=== PATIENT | male | born 1950 | race Caucasian/White ===

== ENCOUNTER 2020-08-06 08:03 | Inpatient (IN) | payer MEDICARE, OTHER, MEDICAID, SELFPAY ==
[2020-08-06] VITALS (63 sets, daily range): BP systolic 100–138; BP diastolic 52–74; PULSE 62–107; RESP 13–28; TEMP 36.1–36.8; O2SAT 90–98
--- NOTE | ~2020-08-06 | US_ITS ---
EXAMINATION: US venous doppler LE EXAM DATE: 08/06/2020 15:55 INDICATION: Bilateral leg edema. TECHNIQUE: Multiple grayscale, color flow and Doppler images of the lower extremity deep venous syste ms bilaterally were obtained and reviewed. There is no prior study for comparison. FINDINGS: Right side: The right common femoral, femoral and profunda veins demonstrate normal color flow, respi ratory variation, augmentation and compressibility. Compressibility, color flow confirmed within the right popliteal, posterior tibial, peroneal, and greater saphenous veins. Left side: The left common femoral, femoral and profunda veins demonstrate normal color flow, respira tory variation, augmentation and compressibility. Compressibility, color flow confirmed within the l eft popliteal, posterior tibial, peroneal, and greater saphenous veins. IMPRESSION: 1. No lower extremity deep venous thrombosis bilaterally. Reviewed, dictated and finalized at location B.
--- NOTE | ~2020-08-06 | XR_ITS ---
XR chest 2V 08/06/2020 08:35 Indication: Shortness of breath. Lower extremity edema. Procedure: AP and lateral views of the chest Comparison: Comparison to multiple prior studies sequentially, with oldest reviewed study dated 06/2010 Findings: Cardiomegaly. Bibasilar airspace disease. Small left pleural effusion. No acute osseous abn ormality. No pneumothorax.. Impression: 1: Bibasilar airspace disease may represent atelectasis or pneumonia. 2: Cardiomegaly. Reviewed, dictated and finalized at location A. Impression: 1: Bibasilar airspace disease may represent atelectasis or pneumonia. 2: Cardiomegaly.
--- NOTE | ~2020-08-06 | XR_ITS ---
XR chest 2V 08/09/2020 11:41 Indication: Hypoxia Procedure: 2 view chest Comparison: Comparison to multiple prior studies sequentially, with oldest reviewed study dated 06/2010. Findings: Progression of patchy bilateral airspace disease since 08/06/2020, compatible with pneumonia . Heart size upper normal. No significant pleural effusion. No pneumothorax. Impression: 1: Progression of patchy bilateral airspace disease, compatible with pneumonia. Reviewed, dictated and finalized at location B. Impression: 1: Progression of patchy bilateral airspace disease, compatible with pneumonia.
--- NOTE | ~2020-08-06 | XR_ITS ---
EXAMINATION: XR chest 2V DATE: 08/13/2020 07:43 INDICATION: Pneumonia and COPD TECHNIQUE: PA view of the chest is obtained. COMPARISON: 08/09/2020 FINDINGS: Airspace opacities persist in the midlung zones and left lung base without significant falcon ge. There is scarring of the lung apices. There is no pleural effusion or pneumothorax. The cardiomed iastinal silhouette is normal. IMPRESSION: 1. Stable opacities of the left lung base and midlung zones, consistent with atelectasis versus pneum onia. Reviewed, dictated and finalized at location A. IMPRESSION: 1. Stable opacities of the left lung base and midlung zones, consistent with at electasis versus pneumonia.
--- NOTE | ~2020-08-06 | CT_ITS ---
EXAMINATION: CTA chest PE protocol DATE: 08/13/2020 15:27 INDICATION: Hypoxia. Chronic obstructive pulmonary disease. TECHNIQUE: Computed tomography angiography (CTA) of the chest was performed with 100 mL Omnipaque-350 intravenous contrast timed to evaluate the pulmonary arteries. Coronal maximum intensity projection 3D-reconstructions were created by the technologist. Automated exposure control and iterative reconst ruction technique were employed. The dose-length product was 1208.82 mGy-cm. COMPARISON: CT abdomen and pelvis 01/22/2012 FINDINGS: There is mild emphysema. There are patchy groundglass and airspace opacities in all lobes b ilaterally associated with areas of architectural distortion and bandlike atelectasis. No pleural eff usion. The heart size is normal. There is a small pericardial effusion. There are coronary artery amrit cifications. There is no pulmonary embolus. There are bridging endplate osteophytes at multiple level s in the spine, consistent with diffuse idiopathic skeletal hyperostosis (DISH). IMPRESSION: 1. No pulmonary embolus. 2. Diffuse lung disease suspicious for atypical pneumonia such as COVID-19 pneumonia. 3. Mild emphysema. 4. Small pericardial effusion. Reviewed, dictated and finalized at location A. IMPRESSION: 1. No pulmonary embolus. 2. Diffuse lung disease suspicious for atypical pneumonia such as COVID-19 pneu monia. 3. Mild emphysema. 4. Small pericardial effusion.
--- NOTE | 2020-08-06 08:17 | ECG_ITS ---
Measurements Intervals [place] Rate: 73 P: 63 OR: 177 QRS: 16 QRSD: 116 T: 26 QT: 382 QTc: 421 Interpretive Statements SINUS RHYTHM INTRAVENTRICULAR CONDUCTION DELAY BASELINE ARTIFACT- I, II, III, AVR, AVL, AVF BORDERLINE ECG Electronically Signed On 08-06-2020 8:25:35 CDT by Hunter Pagan D.O.
[2020-08-06 08:33] LABS: Basophils Percent Auto 0.2 % (0.2-1.2); Eosinophils Absolute Auto 0.1 K/mm3 (0-0.3); Eosinophils Percent Auto 0.9 % (0-4.4); Hematocrit 39.4 % (42.0-52.0); Hemoglobin 12.1 g/dL (14.0-18.0); Immature Granulocyte Absolute 0.03 K/mm3 (0.00-0.031); Immature Granulocyte Percent A 0.5 % (0-0.5); Immature Platelet Fraction Pct 3.2 % (0.9-11.2); Lymphocytes Absolute Auto 0.96 K/mm3 (0.9-3.2); Lymphocytes Percent Auto 17.5 % (18.3-44.2); Mean Corpuscular HGB Conc 30.7 g/dl (32-36); Mean Corpuscular Hemoglobin 28.5 pg (26-34); Mean Corpuscular Volume 92.7 fl (80-100); Mean Platelet Volume 10.4 fl (7.4-10.4); Monocytes Absolute Auto 0.3 K/mm3 (0.1-0.6); Monocytes Percent Auto 5.3 % (2.6-8.5); Neutrophils Absolute Auto 4.2 K/mm3 (1.3-6.7); Neutrophils Percent Auto 75.6 % (45.5-73.1); Platelet Count Result 141 k/mm3 (150-375); Red Blood Count 4.25 M/mm3 (4.6-6.20); Red Cell Distribution Width 15.8 % (11.5-14.5); White Blood Count 5.5 K/mm3 (4.5-10.0)
[2020-08-06 08:39] LABS: Anion Gap 8 mmol/L (8-16); Blood Urea Nitrogen 31 mg/dL (9-20); Calcium 8.1 mg/dL (8.4-10.2); Carbon Dioxide 25 mmol/L (22-30); Chloride 103 mmol/L (98-107); Estimated CRCL calculation 83 ml/min; Estimated Glomerular Filt Rate 60; Glucose 102 mg/dL (75-110); Potassium 4.6 mmol/L (3.4-5.0); Sodium 136 mmol/L (137-145)
[2020-08-06 08:51] LABS: NT Pro B Type Natriuretic Pept 493 pg/mL (5-100); Troponin I 0.014 ng/mL (0.000-0.034)
[2020-08-06 09:07] LABS: INR 0.9; Prothrombin Time 12.4 Seconds (11.1-14.7)
[2020-08-06 09:08] LABS: Partial Thromboplastin Time 35.1 SECONDS (22.3-36.8)
[2020-08-06] MEDS: IPRATROPIUM BR 0.02% INH SOLN 0.5 MG/2.5 ML VIAL INHALATION ×2 (11:35→21:37)
[2020-08-06] MEDS: ALBUTEROL SULFATE NEB 2.5 MG/0.5 ML INH 5 MG INHALATION ×2 (11:35→21:37)
[2020-08-06] MEDS: methylPREDNISolone SOD SUCC 125 MG VIAL IV PUSH (11:51)
--- NOTE | 2020-08-06 13:04 | ED.SOB ---
HPI - SOB/Dyspnea General Chief Complaint: Shortness of Breath/Dyspnea Stated Complaint: sob, swelling Time Seen by Provider: 08/06/20 08:54 Source: patient and family Mode of arrival: ambulatory Limitations: no limitations History of Present Illness HPI Narrative: 70-year-old with a history of COPD, diabetes, CAD, CHF here with complaints of cough and shortness of breath for last few days however since this morning his symptoms got worse. He states that he cannot even walk 15 feet. He denies any chest pain or fever. He states that been taking his medication his brother who stays with him also has bronchitis. MD elicited complaint: shortness of breath and cough Pertinent past history: COPD, congestive heart failure and diabetes Onset (ago): day(s) (2) Timing: constant Severity: moderate Exacerbating factors: exertion Relieving factors: oxygen Known history of: COPD, congestive heart failure and diabetes Associated symptoms: denies other symptoms Related Data Home oxygen amount: none Home Medications Medication Instructions Recorded Confirmed albuterol sulfate INHALATION 08/06/20 amlodipine 5 mg PO DAILY 08/06/20 aspirin 81 mg PO DAILY 08/06/20 atorvastatin 80 mg PO HS 08/06/20 budesonide-formoterol 2 puff INHALATION Q12H 08/06/20 calcium carbonate 200 mg PO BID 08/06/20 carboxymethylcellulose sodium 1 drp EACH EYE QID 08/06/20 carvedilol 25 mg PO BID 08/06/20 cholecalciferol (vitamin D3) 50 mcg PO DAILY 08/06/20 ferrous sulfate 325 mg PO DAILY 08/06/20 furosemide 20 mg PO DAILY 08/06/20 gabapentin 100 mg PO TID 08/06/20 glipizide 5 mg PO BID 08/06/20 hydrophilic 1 applic TOPICAL 6XD 08/06/20 isosorbide mononitrate 120 mg PO DAILY 08/06/20 magnesium oxide 400 mg PO BID 08/06/20 omega-3 fatty acids [Fish Oil] 500 mg PO BID 08/06/20 tiotropium bromide 2 puff INHALATION DAILY 08/06/20 Allergies Allergy/AdvReac Type Severity Reaction Status Date / Time lisinopril Allergy Severe ANGIOEDEMA Verified 09/30/16 11:31 lovastatin Allergy Unknown Verified 09/30/16 11:42 Review of Systems Review of Systems: All systems reviewed & are unremarkable except as noted in HPI and below Constitutional: Constitutional: Reports no additional constitutional complaints Eyes: Eyes: Reports no additional eye complaints Cardiovascular: Cardiovascular: Reports no additional cardiovascular complaints Respiratory: Respiratory: Reports as per HPI Gastrointestinal: Gastrointestinal: Reports no additional gastrointestinal complaints Musculoskeletal: Musculoskeletal: Reports no additional musculoskeletal complaints Integumentary/Breasts: Skin/Breast: Reports system reviewed and no additional complaints, except as docu Psychiatric: Psychiatric: Reports no additional psychiatric complaints Exam Narrative: Exam Narrative: GENERAL: Well-appearing, morbidly obese, and in no acute distress. HEAD: Normocephalic, atraumatic. EYES: PERRLA and EOMI. ENT: Nares clear, no rhinorrhea or epistaxis. Mucous membranes moist. NECK: Supple. CHEST: Mild wheeze. No respiratory distress. HEART: Regular rate and rhythm. No murmur heard. Normal peripheral pulses. ABDOMEN: Soft, nontender, nondistended, normal active bowel sounds. EXTREMITIES: Normal range of motion. No edema. SKIN: Warm, dry, no rash. NEURO: No focal deficits. Alert and oriented x3. PSYCH: Normal mood and affect. Course Course Emergency Course: Patient became hypoxic with minimal ambulation dropped his O2 saturations to 88%. With 2 L O2 via nasal cannula his oxygen picked up to 92 to 93%. I have given a nebulizer treatment and IV Solu-Medrol. We will admit him to the hospital. I discussed with Dr. Moya agreed to admit the patient. Vital Signs Vital signs: Vital Signs Temperature 36.8 C 08/06/20 08:14 Pulse Rate 71 08/06/20 08:14 Respiratory Rate 26 H 08/06/20 08:14 Blood Pressure 138/74 08/06/20 08:14 Pulse Oximetry 92 08/06/20 08:14 Te
--- NOTE | 2020-08-06 14:38 | PM.IMHP ---
H&P: HPI History of Present Illness Date/Time: 08/06/20 14:38 this is a 70-year-old male patient who has a history of diabetes, COPD, and CHF. The patient typically goes to the [facility]. The patient stated that I thought he was going to go home oxygen but did not receive anything. The patient stated over the last 5-6 days he has had orthopnea. The patient stated when he goes to sleep at night he feels like he is drowning any cannot lie flat. The patient has obstructive sleep apnea and is having difficulty sleeping with his CPAP because he feels like he is drowning. The patient stated that he has been taking all of his medications or daily. The patient stated that he has not had an echo on many years. Patient stated that his had a cold and he caught what she had several weeks ago and has been coughing every since then. The patient noticed that he has been wheezing. He has been using his nebulizer treatments at home without any relief. The patient states that he cannot even walk 15 ft without getting short of breath. He also noticed increasing swelling in his hands feet and abdomen. He said he does not weigh himself on a regular basis because his scale broke. Patient denies any fever or chills. But he has had a cough. The patient is short of breath with exertion and also has orthopnea. This all began about 5 or 6 days ago. The patient was placed on oxygen at 2 L per nasal cannula. His O2 saturation is anywhere from 90-97%. Treatment in the emergency room as well as [facility]. The patient is going to be admitted to observation on the date of service of 08/06/2020. Chief Complaint: Orthopnea Review of Systems Review of Systems: All systems reviewed & are unremarkable except as noted in HPI and below Constitutional: Constitutional: Reports as per HPI and Reports no additional constitutional complaints Eyes: Eyes: Reports as per HPI and Reports no additional eye complaints ENT: Reports system reviewed and no additional complaints, except as documented and Reports Normal hearing present Cardiovascular: Cardiovascular: Reports no additional cardiovascular complaints Respiratory: Respiratory: Reports no additional respiratory complaints and Reports no additional respiratory complaints Gastrointestinal: Gastrointestinal: Reports as per HPI and Reports no additional gastrointestinal complaints Musculoskeletal: Musculoskeletal: Reports no additional musculoskeletal complaints Integumentary/Breasts: Skin/Breast: Reports system reviewed and no additional complaints, except as docu and Reports as per HPI Neurologic: Reports system reviewed and no additional complaints, except as documented, Reports as per HPI and Reports Normal hearing present Psychiatric: Psychiatric: Reports no additional psychiatric complaints and Reports as per HPI Endocrine: Endocrine: Reports no additional endocrine complaints Hematologic/Lymphatic: Hematologic/Lymphatic: Reports no additional hematologic/lymphatic complaints Allergic/Immunologic: Allergic/Immunologic: Reports no additional allergic/immunologic complaints PMFSH Past Medical History Medical History (Updated 08/06/20 @ 14:47 by Miladys Campbell NP) Anemia CAD (coronary artery disease) Per patient has had a major heart attack but did not require any cardiac stents CHF (congestive heart failure), NYHA class I Diabetes Hyperlipidemia Hypertension Hypoventilation associated with obesity Obstructive sleep apnea Peptic ulcer disease Seizure disorder Surgical History Surgical History (Updated 08/06/20 @ 14:47 by Miladys Campbell NP) H/O right wrist surgery ORIF Family History Family History (Updated 08/06/20 @ 14:48 by Miladys Campbell NP) Mother Cervical cancer Father Diabetes mellitus Hypertension Meds Home Medications and Allergies Home Medications Medication Instructions Recorded Confirmed Type albuterol sulfate INHALATION 08/06/20 History amlodipine 5 mg P
[2020-08-06 15:37] LABS: Hemoglobin A1C 7.1 % (<5.7)
[2020-08-06 17:26] LABS: Glucose Point of Care 150 mg/dl (65-105)
--- NOTE | 2020-08-06 18:06 | ADMGEN ---
This patient, Tony Ramon, was admitted to Medical Room 245-. Patient/family oriented to hospital policies and general routines including ID bracelet, bed and alarms, visiting hours, pain management, procedures, bathroom and other care routines, personal items, smoking policy, room service/diet, and visiting hours. Information on how to activate the Rapid Response Team has been discussed. Patient/Family are encouraged to report perceived risks to care and to ask questions if they do not understand what they are told or what they should do.
[2020-08-06] MEDS: methylPREDNISolone SOD SUCC 40 MG VIAL IV PUSH (18:21)
[2020-08-06] MEDS: FUROSEMIDE INJ 40 MG/4 ML VIAL IV PUSH (18:21)
[2020-08-06 22:40] LABS: Glucose Point of Care 314 mg/dl (65-105)
[2020-08-07] VITALS (22 sets, daily range): BP systolic 113–150; BP diastolic 57–88; PULSE 61–82; RESP 16–24; TEMP 35.6–36.2; O2SAT 92–96
--- NOTE | 2020-08-07 | ECHO_ITS ---
Patient Info Name: Tony Ramon Age: 70 years : 1950 Gender: Male Ht: 76 in Wt: 334 lbs BSA: 2.91 m2 HR: 55 bpm BP: 146 / 88 mmHg Heart Rhythm: Sinus Rhythm Technical Quality: Fair Exam Date: 08/07/2020 7:49 AM Exam Location: [facility] Pulmonary Exam Room: 245 Patient Status: Outpatient Admit Date: 08/06/2020 Staff Ordering Physician: Miladys Campbell NP Customer Experience Associate: Radha Reyes RDCS Attending Provider: Fernanda Veloz PA-C Referring Physician: Shannan DOMINGUEZ; Exam Type: CA echo doppler color flow Study Info Indications - chf dm copd Complete two-dimensional, color flow and Doppler transthoracic echocardiogram is performed. Summary 1. Complete two-dimensional, color flow and Doppler transthoracic echocardiogram is performed. 2. Technically challenging exam because of obesity. 3. Normal appearing left ventricular size and systolic function. 4. Grade 1 diastolic noncompliance. 5. Modest left atrial enlargement. Left Ventricle Left ventricular chamber dimension is normal. Left ventricular systolic function is normal, estimated at 50-55%. The left ventricular diastolic function is grade I diastolic dysfunction. Right Ventricle Right ventricular chamber dimension is normal. Left Atria Left atrial chamber dimension is mildly enlarged. Right Atria Right atrial chamber dimension is normal. Aortic Valve The aortic valve is normal. Pulmonic Valve The pulmonic valve is not well visualized. Mitral Valve The mitral valve has normal leaflets. Tricuspid Valve The tricuspid valve leaflets are normal. Pericardium/Pleural The pericardium appears normal. Aorta The aortic root size at the sinus of Valsalva is normal. Left Ventricular Outflow Tract Name Value Normal LVOT 2D LVOT Diameter 2.2 cm LVOT Doppler LVOT Peak Gradient 5 mmHg LVOT Mean Gradient 4 mmHg LVOT VTI 28 cm LVOT VTI/AV VTI Ratio 0.9 LVOT Stroke Volume 109 ml LVOT CO 22.1 l/min LVOT CI 7.6 l/min/m2 Pulmonic Valve Name Value Normal PV Doppler PV Peak Gradient 4 mmHg Mitral Valve Name Value Normal MV Doppler MV Decel [place] 804 cm/s2 MV PHT 40 ms MV Area (PHT) 5.5 cm2 4.0-5.0 MV Diastolic Function
[2020-08-07] MEDS: methylPREDNISolone SOD SUCC 40 MG VIAL IV PUSH ×3 (00:07→14:12)
[2020-08-07] MEDS: INSULIN ASPART (*BKC) 100 UNITS/ML 6 UNITS SUB-Q ×2 (00:08→21:28)
[2020-08-07] MEDS: ATORVASTATIN 40 MG TABLET 80 MG PO ×2 (00:28→20:54)
[2020-08-07] MEDS: MAGNESIUM OXIDE 400 MG TABLET PO ×3 (00:28→17:08)
[2020-08-07] MEDS: CALCIUM CARBONATE (TUMS) 500 MG (200 MG ELEMENTAL) PO ×3 (00:28→17:09)
[2020-08-07] MEDS: glipiZIDE 5 MG TABLET PO ×3 (00:28→17:09)
[2020-08-07] MEDS: carvediloL 25 MG TABLET PO ×3 (00:29→20:54)
[2020-08-07] MEDS: GABAPENTIN 100 MG CAPSULE PO ×4 (00:29→17:08)
[2020-08-07] MEDS: ALBUTEROL SULFATE NEB 2.5 MG/0.5 ML INH 5 MG INHALATION ×4 (02:35→19:46)
[2020-08-07] MEDS: IPRATROPIUM BR 0.02% INH SOLN 0.5 MG/2.5 ML VIAL INHALATION ×4 (02:36→19:45)
[2020-08-07 06:14] LABS: Anion Gap 7 mmol/L (8-16); Blood Urea Nitrogen 29 mg/dL (9-20); Calcium 8.1 mg/dL (8.4-10.2); Carbon Dioxide 28 mmol/L (22-30); Chloride 101 mmol/L (98-107); Estimated CRCL calculation 98 ml/min; Estimated Glomerular Filt Rate > 60; Glucose 263 mg/dL (75-110); Sodium 136 mmol/L (137-145)
[2020-08-07 07:24] LABS: Basophils Percent Auto 0.2 % (0.2-1.2); Hematocrit 39.8 % (42.0-52.0); Hemoglobin 12.6 g/dL (14.0-18.0); Immature Granulocyte Absolute 0.02 K/mm3 (0.00-0.031); Immature Granulocyte Percent A 0.5 % (0-0.5); Lymphocytes Absolute Auto 0.75 K/mm3 (0.9-3.2); Lymphocytes Percent Auto 17.2 % (18.3-44.2); Mean Corpuscular HGB Conc 31.7 g/dl (32-36); Mean Corpuscular Hemoglobin 28.3 pg (26-34); Mean Corpuscular Volume 89.4 fl (80-100); Mean Platelet Volume 10.7 fl (7.4-10.4); Monocytes Absolute Auto 0.2 K/mm3 (0.1-0.6); Monocytes Percent Auto 3.9 % (2.6-8.5); Neutrophils Absolute Auto 3.4 K/mm3 (1.3-6.7); Neutrophils Percent Auto 78.2 % (45.5-73.1); Platelet Count Result 164 k/mm3 (150-375); Red Blood Count 4.45 M/mm3 (4.6-6.20); Red Cell Distribution Width 15.4 % (11.5-14.5); White Blood Count 4.4 K/mm3 (4.5-10.0)
[2020-08-07 08:39] LABS: Glucose Point of Care 237 mg/dl (65-105)
[2020-08-07] MEDS: FERROUS SULFATE 324 MG TABLET PO (09:08)
[2020-08-07] MEDS: ASPIRIN 81 MG CHEWABLE TABLET PO (09:08)
[2020-08-07] MEDS: amLODIPine BESYLATE 5 MG TABLET PO (09:08)
[2020-08-07] MEDS: CHOLECALCIFEROL 1,000 UNITS TABLET 2000 UNITS PO (09:09)
[2020-08-07] MEDS: ISOSORBIDE MONONITRATE 60 MG TAB.ER.24H 120 MG PO (09:10)
[2020-08-07] MEDS: FUROSEMIDE INJ 40 MG/4 ML VIAL IV PUSH ×2 (09:10→17:09)
[2020-08-07] MEDS: ENOXAPARIN 40 MG/0.4 ML SYRINGE SUB-Q (09:10)
[2020-08-07] MEDS: INSULIN ASPART (*BKC) 100 UNITS/ML SUB-Q ×3 (09:19→17:11)
[2020-08-07 11:23] LABS: Glucose Point of Care 268 mg/dl (65-105)
--- NOTE | 2020-08-07 16:15 | PM.IMPN ---
Progress Note: A&P Assessment and Plan (1) Acute respiratory failure with hypoxia: Code(s): J96.01 - Acute respiratory failure with hypoxia Status: Acute Assessment and Plan: Multifactorial duct injury to CHF exacerbation, COPD, and obesity hypoventilation syndrome. ER documentation suggest he became hypoxic down to 88%. He has required up to 3 L supplemental O2. He is maintaining adequate oxygen saturations. Continue supplemental O2 with goal saturation 90% or above. Wean to goal. He will likely need a home oxygen evaluation prior to discharge. Further plan as outlined below (2) CHF (congestive heart failure), NYHA class I: Code(s): I50.9 - Heart failure, unspecified Status: Chronic Assessment and Plan: He appears volume overloaded. CXR demonstrates small pleural effusion and cardiomegaly. Echo reviewed with normal EF 50-55% and grade 1 diastolic dysfunction. Continue diuresis with IV Lasix 40 mg b.i.d. Monitor intake and output. Daily weights. Heart healthy diet. Continue Coreg. (3) COPD (chronic obstructive pulmonary disease): Code(s): J44.9 - Chronic obstructive pulmonary disease, unspecified Status: Acute Assessment and Plan: Presented with wheezes. He received IV Solu-Medrol. No wheezes noted on my exam and he does not appear to be in acute exacerbation. Discontinue IV Solu-Medrol Continue nebulized breathing treatments Continue home Symbicort Supplemental O2 as needed (4) Obstructive sleep apnea: Code(s): G47.33 - Obstructive sleep apnea (adult) (pediatric) Status: Chronic Assessment and Plan: Continue CPAP at night (5) CAD (coronary artery disease): Code(s): I25.10 - Atherosclerotic heart disease of [place] coronary artery without angina pectoris Status: Chronic Assessment and Plan: The patient reports history of [place] in the past however he has not had any stents placed. Continue aspirin (6) Hypertension: Code(s): I10 - Essential (primary) hypertension Status: Chronic Assessment and Plan: Blood pressures reviewed and have been well controlled. Last BP 146/88. Continue carvedilol and amlodipine (7) Anemia: Code(s): D64.9 - Anemia, unspecified Status: Chronic Assessment and Plan: Mild. H&H remaining stable. Vitals are stable and there is no evidence of blood loss. Monitor H&H (8) Diabetes: Code(s): E11.9 - Type 2 diabetes mellitus without complications Status: Chronic Assessment and Plan: A1c is 7.1. Blood sugars have been elevated, likely secondary to IV steroids. Continue Accu-Cheks, sliding scale insulin, hypoglycemic protocol Metformin has been held. Continue glipizide. Subjective Date/time seen: 08/07/20 16:15 Interval history: Date of service: 08/07/2020 Tony Ramon this 70-year-old male with a history of CAD, CHF, diabetes, ASHANTI, hypertension, seizure disorder, and PUD who is seen in follow-up for CHF exacerbation.. He continues to endorse dyspnea on exertion as well as conversational dyspnea but states it is improved significantly. He also endorses orthopnea. He has a cough but feels he is not able to expectorates. Was able to sleep last night in a reclined position with his CPAP. He denies wheezing. He feels that his lower extremity swelling is improved. He feels that his abdomen is somewhat distended and firm. He denies abdominal pain or cramping. He had a normal bowel movement this afternoon. He denies nausea, vomiting, fever, chills, dizziness, lightheadedness, weakness. No urinary symptoms. Appetite has been good. He has been able to ambulate independently. No additional concerns at this time. Review of Systems Review of Systems: All systems reviewed & are unremarkable except as noted in HPI and below Exam Narrative: Exam Narrative: Mr. Ramon is an obese, well-ap
[2020-08-07] MEDS: OMEGA 3 POLYUNSAT FATTY ACIDS 1 GM CAP PO (17:08)
[2020-08-07 17:11] LABS: Glucose Point of Care 297 mg/dl (65-105)
[2020-08-07] MEDS: guaiFENesin 12 HR 600 MG TABCR PO (18:05)
[2020-08-07 22:00] LABS: Glucose Point of Care 343 mg/dl (65-105)
[2020-08-08] VITALS (21 sets, daily range): BP systolic 111–130; BP diastolic 58–77; PULSE 56–79; RESP 16–26; TEMP 36.1–36.4; O2SAT 92–95
[2020-08-08] MEDS: ALBUTEROL SULFATE NEB 2.5 MG/0.5 ML INH 5 MG INHALATION ×4 (02:41→19:33)
[2020-08-08] MEDS: IPRATROPIUM BR 0.02% INH SOLN 0.5 MG/2.5 ML VIAL INHALATION ×4 (02:42→19:34)
[2020-08-08 05:28] LABS: Hematocrit 41.2 % (42.0-52.0); Hemoglobin 12.7 g/dL (14.0-18.0)
[2020-08-08 05:46] LABS: Anion Gap 6 mmol/L (8-16); Blood Urea Nitrogen 43 mg/dL (9-20); Calcium 8.1 mg/dL (8.4-10.2); Carbon Dioxide 30 mmol/L (22-30); Chloride 101 mmol/L (98-107); Estimated CRCL calculation 98 ml/min; Estimated Glomerular Filt Rate > 60; Glucose 187 mg/dL (75-110); Sodium 137 mmol/L (137-145)
[2020-08-08] MEDS: guaiFENesin 12 HR 600 MG TABCR PO ×2 (05:49→17:22)
[2020-08-08] MEDS: glipiZIDE 5 MG TABLET PO ×2 (07:28→16:55)
[2020-08-08 07:36] LABS: Glucose Point of Care 150 mg/dl (65-105)
[2020-08-08] MEDS: ASPIRIN 81 MG CHEWABLE TABLET PO (08:38)
[2020-08-08] MEDS: FERROUS SULFATE 324 MG TABLET PO (08:38)
[2020-08-08] MEDS: CHOLECALCIFEROL 1,000 UNITS TABLET 2000 UNITS PO (08:39)
[2020-08-08] MEDS: CALCIUM CARBONATE (TUMS) 500 MG (200 MG ELEMENTAL) PO ×2 (08:39→16:55)
[2020-08-08] MEDS: GABAPENTIN 100 MG CAPSULE PO ×3 (08:39→16:55)
[2020-08-08] MEDS: amLODIPine BESYLATE 5 MG TABLET PO (08:39)
[2020-08-08] MEDS: carvediloL 25 MG TABLET PO ×2 (08:39→21:57)
[2020-08-08] MEDS: FUROSEMIDE INJ 40 MG/4 ML VIAL IV PUSH (08:39)
[2020-08-08] MEDS: MAGNESIUM OXIDE 400 MG TABLET PO ×2 (08:40→16:55)
[2020-08-08] MEDS: OMEGA 3 POLYUNSAT FATTY ACIDS 1 GM CAP PO ×2 (08:40→16:55)
[2020-08-08] MEDS: ISOSORBIDE MONONITRATE 60 MG TAB.ER.24H 120 MG PO (08:40)
[2020-08-08] MEDS: ENOXAPARIN 40 MG/0.4 ML SYRINGE SUB-Q (08:40)
[2020-08-08] MEDS: EUCERIN CREAM 454 GM JAR 1 APPLIC TOPICAL (08:41)
--- NOTE | 2020-08-08 11:26 | P.PNIM_ITS ---
Progress Note: A&P Assessment and Plan (1) Acute respiratory failure with hypoxia: Code(s): J96.01 - Acute respiratory failure with hypoxia Status: Acute Assessment and Plan: Likely multifactorial secondary to CHF exacerbation, COPD, and obesity hypoventilation syndrome. ER documentation suggests he became hypoxic down to 88%. He has required up to 4 L supplemental O2. He is maintaining adequate oxygen saturations. * Continue supplemental O2 with goal saturation 90% or above. Wean to goal. * He will likely need a home oxygen evaluation prior to discharge. * Further plan as outlined below (2) CHF (congestive heart failure), NYHA class I: Code(s): I50.9 - Heart failure, unspecified Status: Chronic Assessment and Plan: He appears volume overloaded. CXR demonstrates small pleural effusion and cardiomegaly. Echo reviewed with normal EF 50-55% and grade 1 diastolic dysfunction. * Continue diuresis with IV Lasix 40 mg daily * Monitor intake and output. Daily weights. * Heart healthy diet. * Continue Coreg. (3) COPD (chronic obstructive pulmonary disease): Code(s): J44.9 - Chronic obstructive pulmonary disease, unspecified Status: Acute Assessment and Plan: Presented with wheezes. He received IV Solu-Medrol. Diffuse wheezing again noted on exam today and increased supplemental O2 requirements * Will resume IV Solu-Medrol 40 mg q8h * Continue nebulized breathing treatments * Continue home Symbicort * Supplemental O2 as needed (4) Obstructive sleep apnea: Code(s): G47.33 - Obstructive sleep apnea (adult) (pediatric) Status: Chronic Assessment and Plan: * Continue CPAP at night (5) CAD (coronary artery disease): Code(s): I25.10 - Atherosclerotic heart disease of [place] coronary artery without angina pectoris Status: Chronic Assessment and Plan: The patient reports history of [place] in the past however he has not had any stents placed. * Continue aspirin (6) Hypertension: Code(s): I10 - Essential (primary) hypertension Status: Chronic Assessment and Plan: Blood pressures reviewed and have been well controlled. Last BP 130/77 * Continue carvedilol and amlodipine (7) Anemia: Code(s): D64.9 - Anemia, unspecified Status: Chronic Assessment and Plan: Mild. H&H remaining stable. Vitals are stable and there is no evidence of blood loss. * Monitor H&H (8) Diabetes: Code(s): E11.9 - Type 2 diabetes mellitus without complications Status: Chronic Assessment and Plan: A1c is 7.1. Blood sugars have been elevated, likely secondary to IV steroids. * Continue Accu-Cheks, sliding scale insulin, hypoglycemic protocol * Will add Lantus while receiving IV steroids * Metformin has been held. Continue glipizide. Subjective Date/time seen: 08/08/20 11:26 Interval history: Date of service: 08/08/2020 Tony Linda Yenny this 70-year-old male with a history of CAD, CHF, diabetes, ASHANTI, hypertension, seizure disorder, and PUD who is seen in follow-up for CHF exacerbation. He is feeling better today. Notes improvement shortness of breath. He is able to converse without feeling that he needs to stop to catch his breath. He was able to get up and walk to the bathroom today and did not endorse dyspnea on exertion. He did note that he woke up in the middle the night last night because he was having difficulty breathing and took off his CPA
--- NOTE | 2020-08-08 11:26 | PM.IMPN ---
Progress Note: A&P Assessment and Plan (1) Acute respiratory failure with hypoxia: Code(s): J96.01 - Acute respiratory failure with hypoxia Status: Acute Assessment and Plan: Likely multifactorial secondary to CHF exacerbation, COPD, and obesity hypoventilation syndrome. ER documentation suggests he became hypoxic down to 88%. He has required up to 4 L supplemental O2. He is maintaining adequate oxygen saturations. Continue supplemental O2 with goal saturation 90% or above. Wean to goal. He will likely need a home oxygen evaluation prior to discharge. Further plan as outlined below (2) CHF (congestive heart failure), NYHA class I: Code(s): I50.9 - Heart failure, unspecified Status: Chronic Assessment and Plan: He appears volume overloaded. CXR demonstrates small pleural effusion and cardiomegaly. Echo reviewed with normal EF 50-55% and grade 1 diastolic dysfunction. Continue diuresis with IV Lasix 40 mg daily Monitor intake and output. Daily weights. Heart healthy diet. Continue Coreg. (3) COPD (chronic obstructive pulmonary disease): Code(s): J44.9 - Chronic obstructive pulmonary disease, unspecified Status: Acute Assessment and Plan: Presented with wheezes. He received IV Solu-Medrol. Diffuse wheezing again noted on exam today and increased supplemental O2 requirements Will resume IV Solu-Medrol 40 mg q8h Continue nebulized breathing treatments Continue home Symbicort Supplemental O2 as needed (4) Obstructive sleep apnea: Code(s): G47.33 - Obstructive sleep apnea (adult) (pediatric) Status: Chronic Assessment and Plan: Continue CPAP at night (5) CAD (coronary artery disease): Code(s): I25.10 - Atherosclerotic heart disease of [place] coronary artery without angina pectoris Status: Chronic Assessment and Plan: The patient reports history of [place] in the past however he has not had any stents placed. Continue aspirin (6) Hypertension: Code(s): I10 - Essential (primary) hypertension Status: Chronic Assessment and Plan: Blood pressures reviewed and have been well controlled. Last BP 130/77 Continue carvedilol and amlodipine (7) Anemia: Code(s): D64.9 - Anemia, unspecified Status: Chronic Assessment and Plan: Mild. H&H remaining stable. Vitals are stable and there is no evidence of blood loss. Monitor H&H (8) Diabetes: Code(s): E11.9 - Type 2 diabetes mellitus without complications Status: Chronic Assessment and Plan: A1c is 7.1. Blood sugars have been elevated, likely secondary to IV steroids. Continue Accu-Cheks, sliding scale insulin, hypoglycemic protocol Will add Lantus while receiving IV steroids Metformin has been held. Continue glipizide. Subjective Date/time seen: 08/08/20 11:26 Interval history: Date of service: 08/08/2020 Tony Mckeon Yenny this 70-year-old male with a history of CAD, CHF, diabetes, ASHANTI, hypertension, seizure disorder, and PUD who is seen in follow-up for CHF exacerbation. He is feeling better today. Notes improvement shortness of breath. He is able to converse without feeling that he needs to stop to catch his breath. He was able to get up and walk to the bathroom today and did not endorse dyspnea on exertion. He did note that he woke up in the middle the night last night because he was having difficulty breathing and took off his CPAP mask while sleeping. He feels that his lower extremity swelling has improved. He felt like he was wheezing more last night but this seems better today. He has been eating well. Denies nausea, vomiting, fever, or chills. Reports frequent urination secondary to furosemide but otherwise denies urinary symptoms. No dizziness, lightheadedness, or weakness. Review of Systems Review of Systems: All systems reviewed & are unremarkable except as
[2020-08-08] MEDS: INSULIN ASPART (*BKC) 100 UNITS/ML SUB-Q ×2 (11:55→16:52)
[2020-08-08 11:59] LABS: Glucose Point of Care 208 mg/dl (65-105)
[2020-08-08] MEDS: methylPREDNISolone SOD SUCC 40 MG VIAL IV PUSH ×2 (13:35→21:58)
[2020-08-08 16:48] LABS: Glucose Point of Care 202 mg/dl (65-105)
[2020-08-08] MEDS: ATORVASTATIN 40 MG TABLET 80 MG PO (21:58)
[2020-08-08] MEDS: INSULIN GLARGINE (*BKC) 100 UNITS/ML 35 UNITS SUB-Q (22:11)
[2020-08-08 23:03] LABS: Glucose Point of Care 267 mg/dl (65-105)
[2020-08-08] MEDS: MAGNESIUM HYDROXIDE SUSP 30 ML UDC PO (23:24)
[2020-08-09] VITALS (26 sets, daily range): BP systolic 113–153; BP diastolic 59–91; PULSE 56–74; RESP 16–24; TEMP 36.1–36.9; O2SAT 89–94
[2020-08-09] MEDS: IPRATROPIUM BR 0.02% INH SOLN 0.5 MG/2.5 ML VIAL INHALATION ×4 (01:29→20:16)
[2020-08-09] MEDS: ALBUTEROL SULFATE NEB 2.5 MG/0.5 ML INH 5 MG INHALATION ×4 (01:29→20:16)
[2020-08-09 05:32] LABS: Hematocrit 41.7 % (42.0-52.0); Hemoglobin 12.8 g/dL (14.0-18.0)
[2020-08-09 05:53] LABS: Anion Gap 7 mmol/L (8-16); Blood Urea Nitrogen 36 mg/dL (9-20); Calcium 8.3 mg/dL (8.4-10.2); Carbon Dioxide 32 mmol/L (22-30); Chloride 97 mmol/L (98-107); Estimated CRCL calculation 95 ml/min; Estimated Glomerular Filt Rate > 60; Glucose 243 mg/dL (75-110); Potassium 5.4 mmol/L (3.4-5.0); Sodium 136 mmol/L (137-145)
[2020-08-09] MEDS: guaiFENesin 12 HR 600 MG TABCR PO ×2 (05:55→17:01)
[2020-08-09] MEDS: methylPREDNISolone SOD SUCC 40 MG VIAL IV PUSH ×3 (05:55→20:56)
[2020-08-09] MEDS: glipiZIDE 5 MG TABLET PO ×2 (06:43→17:01)
[2020-08-09] MEDS: CALCIUM CARBONATE (TUMS) 500 MG (200 MG ELEMENTAL) PO ×2 (08:07→17:00)
[2020-08-09] MEDS: CHOLECALCIFEROL 1,000 UNITS TABLET 2000 UNITS PO (08:07)
[2020-08-09] MEDS: carvediloL 25 MG TABLET PO ×2 (08:07→20:50)
[2020-08-09] MEDS: OMEGA 3 POLYUNSAT FATTY ACIDS 1 GM CAP PO ×2 (08:08→17:01)
[2020-08-09] MEDS: GABAPENTIN 100 MG CAPSULE PO ×3 (08:08→17:00)
[2020-08-09] MEDS: FERROUS SULFATE 324 MG TABLET PO (08:08)
[2020-08-09] MEDS: FUROSEMIDE INJ 40 MG/4 ML VIAL IV PUSH (08:08)
[2020-08-09] MEDS: ASPIRIN 81 MG CHEWABLE TABLET PO (08:08)
[2020-08-09] MEDS: ISOSORBIDE MONONITRATE 60 MG TAB.ER.24H 120 MG PO (08:08)
[2020-08-09] MEDS: ENOXAPARIN 40 MG/0.4 ML SYRINGE SUB-Q (08:09)
[2020-08-09] MEDS: MAGNESIUM OXIDE 400 MG TABLET PO ×2 (08:09→17:01)
[2020-08-09] MEDS: amLODIPine BESYLATE 5 MG TABLET PO (08:09)
[2020-08-09] MEDS: EUCERIN CREAM 454 GM JAR 1 APPLIC TOPICAL (08:10)
[2020-08-09 08:30] LABS: Glucose Point of Care 216 mg/dl (65-105)
[2020-08-09] MEDS: INSULIN ASPART (*BKC) 100 UNITS/ML SUB-Q ×3 (08:34→17:28)
[2020-08-09 10:12] LABS: D Dimer 0.47 ug/mL (<0.48)
[2020-08-09 12:38] LABS: Glucose Point of Care 221 mg/dl (65-105)
[2020-08-09 13:25] LABS: Anion Gap 7 mmol/L (8-16); Blood Urea Nitrogen 37 mg/dL (9-20); Calcium 8.4 mg/dL (8.4-10.2); Carbon Dioxide 32 mmol/L (22-30); Chloride 97 mmol/L (98-107); Estimated CRCL calculation 104 ml/min; Estimated Glomerular Filt Rate > 60; Glucose 226 mg/dL (75-110); Potassium 5.1 mmol/L (3.4-5.0); Sodium 136 mmol/L (137-145)
[2020-08-09] MEDS: MAGNESIUM HYDROXIDE SUSP 30 ML UDC PO (14:59)
--- NOTE | 2020-08-09 15:15 | P.PNIM_ITS ---
Progress Note: A&P Assessment and Plan (1) Acute respiratory failure with hypoxia: Code(s): J96.01 - Acute respiratory failure with hypoxia Status: Acute Assessment and Plan: Likely multifactorial secondary to CHF exacerbation, COPD, and obesity hypoventilation syndrome. Chest x-ray today appears worsened today with concern of pneumonia. The patient also was hypoxic today and now on 6 L. I am going to add azithromycin and ceftriaxone at this time. * Continue supplemental O2 with goal saturation 90% or above. Wean to goal. * He will likely need a home oxygen evaluation prior to discharge. * Further plan as outlined below * COVID-19 seems less likely (patient fully vaccinated) but the patient does have a leukopenia. If he worsens or shows any other signs of COVID-19, may consider testing. (2) CHF (congestive heart failure), NYHA class I: Code(s): I50.9 - Heart failure, unspecified Status: Chronic Assessment and Plan: He appears volume overloaded but improved. Echo reviewed with normal EF 50-55% and grade 1 diastolic dysfunction. * Continue diuresis with IV Lasix 40 mg daily * Monitor intake and output. Daily weights. * Heart healthy diet. * Continue Coreg. (3) COPD (chronic obstructive pulmonary disease): Code(s): J44.9 - Chronic obstructive pulmonary disease, unspecified Status: Acute Assessment and Plan: Presented with wheezes. He received IV Solu-Medrol. Diffuse wheezing again noted on exam today and increased supplemental O2 requirements * Continue IV Solu-Medrol 40 mg q8h * Continue nebulized breathing treatments * Continue home Symbicort * Supplemental O2 as needed * Start antibiotics as above * Will check urine antigens for Legionella and pneumococcal pneumonia (4) Obstructive sleep apnea: Code(s): G47.33 - Obstructive sleep apnea (adult) (pediatric) Status: Chronic Assessment and Plan: * Continue CPAP at night (5) CAD (coronary artery disease): Code(s): I25.10 - Atherosclerotic heart disease of [place] coronary artery without angina pectoris Status: Chronic Assessment and Plan: The patient reports history of [place] in the past however he has not had any stents placed. No CP while here. * Continue aspirin (6) Hypertension: Code(s): I10 - Essential (primary) hypertension Status: Chronic Assessment and Plan: Blood pressures reviewed and have been well controlled. Last BP 133/70 * Continue carvedilol and amlodipine (7) Anemia: Code(s): D64.9 - Anemia, unspecified Status: Chronic Assessment and Plan: Mild. H&H remaining stable. Vitals are stable and there is no evidence of blood loss. * Monitor H&H (8) Diabetes: Code(s): E11.9 - Type 2 diabetes mellitus without complications Status: Chronic Assessment and Plan: Last glucose 226 with an A1c is 7.1. Blood sugars have been elevated, likely secondary to IV steroids. * Continue Accu-Cheks, sliding scale insulin (increased today), hypoglycemic protocol * Continue Lantus 35 units * Metformin has been held. Continue glipizide. (9) Pneumonia: Code(s): J18.9 - Pneumonia, unspecified organism Status: Acute Assessment and Plan: As above -start ceftriaxone and azithromycin -continue o2 as needed for sats >90 -check urine antigen -consider covid testing if pt worsens or other symptoms arise. CXR not consistent with COVID a
--- NOTE | 2020-08-09 15:15 | PM.IMPN ---
Progress Note: A&P Assessment and Plan (1) Acute respiratory failure with hypoxia: Code(s): J96.01 - Acute respiratory failure with hypoxia Status: Acute Assessment and Plan: Likely multifactorial secondary to CHF exacerbation, COPD, and obesity hypoventilation syndrome. Chest x-ray today appears worsened today with concern of pneumonia. The patient also was hypoxic today and now on 6 L. I am going to add azithromycin and ceftriaxone at this time. Continue supplemental O2 with goal saturation 90% or above. Wean to goal. He will likely need a home oxygen evaluation prior to discharge. Further plan as outlined below COVID-19 seems less likely (patient fully vaccinated) but the patient does have a leukopenia. If he worsens or shows any other signs of COVID-19, may consider testing. (2) CHF (congestive heart failure), NYHA class I: Code(s): I50.9 - Heart failure, unspecified Status: Chronic Assessment and Plan: He appears volume overloaded but improved. Echo reviewed with normal EF 50-55% and grade 1 diastolic dysfunction. Continue diuresis with IV Lasix 40 mg daily Monitor intake and output. Daily weights. Heart healthy diet. Continue Coreg. (3) COPD (chronic obstructive pulmonary disease): Code(s): J44.9 - Chronic obstructive pulmonary disease, unspecified Status: Acute Assessment and Plan: Presented with wheezes. He received IV Solu-Medrol. Diffuse wheezing again noted on exam today and increased supplemental O2 requirements Continue IV Solu-Medrol 40 mg q8h Continue nebulized breathing treatments Continue home Symbicort Supplemental O2 as needed Start antibiotics as above Will check urine antigens for Legionella and pneumococcal pneumonia (4) Obstructive sleep apnea: Code(s): G47.33 - Obstructive sleep apnea (adult) (pediatric) Status: Chronic Assessment and Plan: Continue CPAP at night (5) CAD (coronary artery disease): Code(s): I25.10 - Atherosclerotic heart disease of [place] coronary artery without angina pectoris Status: Chronic Assessment and Plan: The patient reports history of [place] in the past however he has not had any stents placed. No CP while here. Continue aspirin (6) Hypertension: Code(s): I10 - Essential (primary) hypertension Status: Chronic Assessment and Plan: Blood pressures reviewed and have been well controlled. Last BP 133/70 Continue carvedilol and amlodipine (7) Anemia: Code(s): D64.9 - Anemia, unspecified Status: Chronic Assessment and Plan: Mild. H&H remaining stable. Vitals are stable and there is no evidence of blood loss. Monitor H&H (8) Diabetes: Code(s): E11.9 - Type 2 diabetes mellitus without complications Status: Chronic Assessment and Plan: Last glucose 226 with an A1c is 7.1. Blood sugars have been elevated, likely secondary to IV steroids. Continue Accu-Cheks, sliding scale insulin (increased today), hypoglycemic protocol Continue Lantus 35 units Metformin has been held. Continue glipizide. (9) Pneumonia: Code(s): J18.9 - Pneumonia, unspecified organism Status: Acute Assessment and Plan: As above -start ceftriaxone and azithromycin -continue o2 as needed for sats >90 -check urine antigen -consider covid testing if pt worsens or other symptoms arise. CXR not consistent with COVID and pt is fully vaccinated. Time Spent With Patient Time with patient: 25 - 35 minutes Subjective Date/time seen: 08/09/20 15:15 Interval history: Pt is a 70-year-old male here for CHF versus pneumonia. Patient was seen today and he is feeling better now that he is on 6 L of oxygen. Earlier today he felt weak and short of breath as well as lightheaded but is doing much better. His cough is unchanged. He got the COVID-19 vaccine in February and the 2nd dose i
[2020-08-09 17:28] LABS: Glucose Point of Care 252 mg/dl (65-105)
[2020-08-09] MEDS: ATORVASTATIN 40 MG TABLET 80 MG PO (20:50)
[2020-08-09] MEDS: INSULIN GLARGINE (*BKC) 100 UNITS/ML 35 UNITS SUB-Q (20:54)
[2020-08-09 21:39] LABS: Glucose Point of Care 255 mg/dl (65-105)
[2020-08-10] VITALS (25 sets, daily range): BP systolic 120–159; BP diastolic 64–87; PULSE 49–78; RESP 16–20; TEMP 35.8–36.8; O2SAT 90–95
[2020-08-10] MEDS: ALBUTEROL SULFATE NEB 2.5 MG/0.5 ML INH 5 MG INHALATION ×4 (02:00→21:17)
[2020-08-10] MEDS: IPRATROPIUM BR 0.02% INH SOLN 0.5 MG/2.5 ML VIAL INHALATION ×4 (02:01→21:17)
[2020-08-10 05:40] LABS: Hematocrit 39.5 % (42.0-52.0); Hemoglobin 12.9 g/dL (14.0-18.0); Mean Corpuscular HGB Conc 32.7 g/dl (32-36); Mean Corpuscular Hemoglobin 28.9 pg (26-34); Mean Corpuscular Volume 88.6 fl (80-100); Mean Platelet Volume 10.4 fl (7.4-10.4); Platelet Count Result 189 k/mm3 (150-375); Red Blood Count 4.46 M/mm3 (4.6-6.20); Red Cell Distribution Width 14.7 % (11.5-14.5); White Blood Count 8.1 K/mm3 (4.5-10.0)
[2020-08-10 05:51] LABS: Alanine Aminotransferase 19 U/L (4-50); Albumin Level 3.4 g/dL (3.5-5.1); Alkaline Phosphatase 70 U/L (38-126); Anion Gap 5 mmol/L (8-16); Aspartate Amino Transferase 21 U/L (17-59); Bilirubin,Total 0.5 mg/dL (0.2-1.3); Blood Urea Nitrogen 33 mg/dL (9-20); Calcium 8.6 mg/dL (8.4-10.2); Carbon Dioxide 34 mmol/L (22-30); Chloride 97 mmol/L (98-107); Estimated CRCL calculation 104 ml/min; Estimated Glomerular Filt Rate > 60; Glucose 249 mg/dL (75-110); Potassium 5.2 mmol/L (3.4-5.0); Sodium 136 mmol/L (137-145)
[2020-08-10] MEDS: methylPREDNISolone SOD SUCC 40 MG VIAL IV PUSH ×2 (06:33→14:54)
[2020-08-10] MEDS: guaiFENesin 12 HR 600 MG TABCR PO ×2 (06:33→17:07)
[2020-08-10] MEDS: glipiZIDE 5 MG TABLET PO ×2 (06:33→16:17)
[2020-08-10 08:09] LABS: Glucose Point of Care 217 mg/dl (65-105)
[2020-08-10] MEDS: INSULIN ASPART (*BKC) 100 UNITS/ML SUB-Q ×3 (08:10→17:06)
[2020-08-10] MEDS: ENOXAPARIN 40 MG/0.4 ML SYRINGE SUB-Q (08:12)
[2020-08-10] MEDS: ASPIRIN 81 MG CHEWABLE TABLET PO (08:12)
[2020-08-10] MEDS: MAGNESIUM OXIDE 400 MG TABLET PO ×2 (08:12→16:17)
[2020-08-10] MEDS: carvediloL 25 MG TABLET PO ×2 (08:12→20:48)
[2020-08-10] MEDS: FUROSEMIDE INJ 40 MG/4 ML VIAL IV PUSH (08:12)
[2020-08-10] MEDS: CALCIUM CARBONATE (TUMS) 500 MG (200 MG ELEMENTAL) PO ×2 (08:12→16:17)
[2020-08-10] MEDS: CHOLECALCIFEROL 1,000 UNITS TABLET 2000 UNITS PO (08:12)
[2020-08-10] MEDS: OMEGA 3 POLYUNSAT FATTY ACIDS 1 GM CAP PO ×2 (08:12→16:17)
[2020-08-10] MEDS: ISOSORBIDE MONONITRATE 60 MG TAB.ER.24H 120 MG PO (08:13)
[2020-08-10] MEDS: GABAPENTIN 100 MG CAPSULE PO ×3 (08:13→16:17)
[2020-08-10] MEDS: amLODIPine BESYLATE 5 MG TABLET PO (08:13)
[2020-08-10] MEDS: FERROUS SULFATE 324 MG TABLET PO (08:13)
--- NOTE | 2020-08-10 10:38 | P.PNIM_ITS ---
Progress Note: A&P Assessment and Plan (1) Acute respiratory failure with hypoxia: Code(s): J96.01 - Acute respiratory failure with hypoxia Status: Acute Assessment and Plan: Likely multifactorial secondary to CHF exacerbation, COPD, and obesity hypoventilation syndrome. Chest x-ray on 08/09 appeared worsened with concerns for pneumonia. He is requiring up to 6 L supplemental O2. * Continue supplemental O2 with goal saturation 90% or above. Wean to goal. * He will likely need a home oxygen evaluation prior to discharge. * Further plan as outlined below (2) CHF (congestive heart failure), NYHA class I: Code(s): I50.9 - Heart failure, unspecified Status: Chronic Assessment and Plan: Evidence of volume overload at presentation. Echo reviewed with normal EF 50-55% and grade 1 diastolic dysfunction. He appears euvolemic at this time. * Transition to PO Lasix 40 mg daily * Monitor intake and output. Daily weights. * Heart healthy diet. * Continue Coreg. (3) Pneumonia: Code(s): J18.9 - Pneumonia, unspecified organism Status: Acute Assessment and Plan: Evident on repeat CXR. * Continue IV ceftriaxone and azithromycin * continue o2 as needed for sats >90 * Urinary legionella and pneumococcal antigens pending * COVID-19 seems unlikely as he is fully vaccinated. If symptoms worsen or demonstrates any other signs of COVID-19, would consider testing. (4) COPD (chronic obstructive pulmonary disease): Code(s): J44.9 - Chronic obstructive pulmonary disease, unspecified Status: Acute Assessment and Plan: Presented with diffuse wheezes on exam, consistent with COPD exacerbation. O2 requirements remaining stable today. * IV Solu-Medrol 40 mg q23h * Continue nebulized breathing treatments * Continue home Symbicort * Supplemental O2 as needed * Antibiotics initiated as above (5) Obstructive sleep apnea: Code(s): G47.33 - Obstructive sleep apnea (adult) (pediatric) Status: Chronic Assessment and Plan: * Continue CPAP at night (6) CAD (coronary artery disease): Code(s): I25.10 - Atherosclerotic heart disease of [place] coronary artery without angina pectoris Status: Chronic Assessment and Plan: The patient reports history of [place] in the past however he has not had any stents placed. No CP while here. * Continue aspirin (7) Hypertension: Code(s): I10 - Essential (primary) hypertension Status: Chronic Assessment and Plan: Blood pressures reviewed and have been well controlled. Last BP 120/66 * Continue carvedilol and amlodipine (8) Anemia: Code(s): D64.9 - Anemia, unspecified Status: Chronic Assessment and Plan: Mild. H&H remaining stable. Vitals are stable and there is no evidence of blood loss. * Monitor H&H (9) Diabetes: Code(s): E11.9 - Type 2 diabetes mellitus without complications Status: Chronic Assessment and Plan: A1c is 7.1. Blood sugars have been slightly elevated, likely secondary to IV steroids. * Continue Accu-Cheks, sliding scale insulin (high dose), hypoglycemic protocol * Continue Lantus 35 units * Metformin has been held. Continue glipizide. Subjective Date/time seen: 08/10/20 10:38 Interval history: Date of service: 08/08/2020 Tony Ramon this 70-year-old male with a history of CAD, CHF, diabetes, ASHANTI, hypertension, seizure disorder, and
--- NOTE | 2020-08-10 10:38 | PM.IMPN ---
Progress Note: A&P Assessment and Plan (1) Acute respiratory failure with hypoxia: Code(s): J96.01 - Acute respiratory failure with hypoxia Status: Acute Assessment and Plan: Likely multifactorial secondary to CHF exacerbation, COPD, and obesity hypoventilation syndrome. Chest x-ray on 08/09 appeared worsened with concerns for pneumonia. He is requiring up to 6 L supplemental O2. Continue supplemental O2 with goal saturation 90% or above. Wean to goal. He will likely need a home oxygen evaluation prior to discharge. Further plan as outlined below (2) CHF (congestive heart failure), NYHA class I: Code(s): I50.9 - Heart failure, unspecified Status: Chronic Assessment and Plan: Evidence of volume overload at presentation. Echo reviewed with normal EF 50-55% and grade 1 diastolic dysfunction. He appears euvolemic at this time. Transition to PO Lasix 40 mg daily Monitor intake and output. Daily weights. Heart healthy diet. Continue Coreg. (3) Pneumonia: Code(s): J18.9 - Pneumonia, unspecified organism Status: Acute Assessment and Plan: Evident on repeat CXR. Continue IV ceftriaxone and azithromycin continue o2 as needed for sats >90 Urinary legionella and pneumococcal antigens pending COVID-19 seems unlikely as he is fully vaccinated. If symptoms worsen or demonstrates any other signs of COVID-19, would consider testing. (4) COPD (chronic obstructive pulmonary disease): Code(s): J44.9 - Chronic obstructive pulmonary disease, unspecified Status: Acute Assessment and Plan: Presented with diffuse wheezes on exam, consistent with COPD exacerbation. O2 requirements remaining stable today. IV Solu-Medrol 40 mg q23h Continue nebulized breathing treatments Continue home Symbicort Supplemental O2 as needed Antibiotics initiated as above (5) Obstructive sleep apnea: Code(s): G47.33 - Obstructive sleep apnea (adult) (pediatric) Status: Chronic Assessment and Plan: Continue CPAP at night (6) CAD (coronary artery disease): Code(s): I25.10 - Atherosclerotic heart disease of [place] coronary artery without angina pectoris Status: Chronic Assessment and Plan: The patient reports history of [place] in the past however he has not had any stents placed. No CP while here. Continue aspirin (7) Hypertension: Code(s): I10 - Essential (primary) hypertension Status: Chronic Assessment and Plan: Blood pressures reviewed and have been well controlled. Last BP 120/66 Continue carvedilol and amlodipine (8) Anemia: Code(s): D64.9 - Anemia, unspecified Status: Chronic Assessment and Plan: Mild. H&H remaining stable. Vitals are stable and there is no evidence of blood loss. Monitor H&H (9) Diabetes: Code(s): E11.9 - Type 2 diabetes mellitus without complications Status: Chronic Assessment and Plan: A1c is 7.1. Blood sugars have been slightly elevated, likely secondary to IV steroids. Continue Accu-Cheks, sliding scale insulin (high dose), hypoglycemic protocol Continue Lantus 35 units Metformin has been held. Continue glipizide. Subjective Date/time seen: 08/10/20 10:38 Interval history: Date of service: 08/08/2020 Tony Mckeon Yenny this 70-year-old male with a history of CAD, CHF, diabetes, ASHANTI, hypertension, seizure disorder, and PUD who is seen in follow-up for CHF exacerbation. He is feeling better today. Shortness of breath is improved and he feels he is able to take deeper breaths. He has minimal FERMIN and notes that this is improving. No chest pain or palpitations. Reports his lower extremity edema has resolved. He has cough but is unable to expectorate. Reports chest congestion and mucus that he is not able to cough up. Denies wheezing. Denies fever, chills, nausea, vomiting, dizziness, lightheadedness
[2020-08-10 12:45] LABS: Glucose Point of Care 226 mg/dl (65-105)
[2020-08-10 17:06] LABS: Glucose Point of Care 400 mg/dl (65-105)
[2020-08-10] MEDS: ATORVASTATIN 40 MG TABLET 80 MG PO (20:48)
[2020-08-10] MEDS: INSULIN GLARGINE (*BKC) 100 UNITS/ML 35 UNITS SUB-Q (20:53)
[2020-08-10 22:06] LABS: Glucose Point of Care 288 mg/dl (65-105)
[2020-08-11] VITALS (25 sets, daily range): BP systolic 132–152; BP diastolic 57–86; PULSE 54–89; RESP 16–22; TEMP 36.1–36.5; O2SAT 90–96
[2020-08-11 01:08] LABS: Pneumococcal Antigen Urine Not Detected (Not Detected)
[2020-08-11] MEDS: IPRATROPIUM BR 0.02% INH SOLN 0.5 MG/2.5 ML VIAL INHALATION ×4 (01:50→20:01)
[2020-08-11] MEDS: ALBUTEROL SULFATE NEB 2.5 MG/0.5 ML INH 5 MG INHALATION ×4 (01:50→20:01)
[2020-08-11] MEDS: methylPREDNISolone SOD SUCC 40 MG VIAL IV PUSH ×2 (02:01→15:15)
[2020-08-11] MEDS: guaiFENesin 12 HR 600 MG TABCR PO ×2 (05:32→17:21)
[2020-08-11 05:38] LABS: Hematocrit 40.6 % (42.0-52.0); Hemoglobin 12.9 g/dL (14.0-18.0)
[2020-08-11 05:48] LABS: Anion Gap 7 mmol/L (8-16); Blood Urea Nitrogen 36 mg/dL (9-20); Calcium 8.7 mg/dL (8.4-10.2); Carbon Dioxide 32 mmol/L (22-30); Chloride 97 mmol/L (98-107); Estimated CRCL calculation 95 ml/min; Estimated Glomerular Filt Rate > 60; Glucose 239 mg/dL (75-110); Sodium 136 mmol/L (137-145)
[2020-08-11 06:51] LABS: Legionella pneumophila Ag Ur Not Detected (Not Detected)
[2020-08-11] MEDS: INSULIN ASPART (*BKC) 100 UNITS/ML 7 UNITS SUB-Q ×3 (08:01→17:21)
[2020-08-11] MEDS: INSULIN ASPART (*BKC) 100 UNITS/ML SUB-Q ×3 (08:02→17:20)
[2020-08-11] MEDS: amLODIPine BESYLATE 5 MG TABLET PO (08:06)
[2020-08-11] MEDS: OMEGA 3 POLYUNSAT FATTY ACIDS 1 GM CAP PO ×2 (08:06→16:27)
[2020-08-11] MEDS: ISOSORBIDE MONONITRATE 60 MG TAB.ER.24H 120 MG PO (08:06)
[2020-08-11] MEDS: MAGNESIUM OXIDE 400 MG TABLET PO ×2 (08:06→16:27)
[2020-08-11] MEDS: FUROSEMIDE 40 MG TABLET PO (08:06)
[2020-08-11] MEDS: CALCIUM CARBONATE (TUMS) 500 MG (200 MG ELEMENTAL) PO ×2 (08:06→16:26)
[2020-08-11] MEDS: GABAPENTIN 100 MG CAPSULE PO ×3 (08:06→16:26)
[2020-08-11] MEDS: glipiZIDE 5 MG TABLET PO ×2 (08:07→17:21)
[2020-08-11] MEDS: CHOLECALCIFEROL 1,000 UNITS TABLET 2000 UNITS PO (08:07)
[2020-08-11] MEDS: ASPIRIN 81 MG CHEWABLE TABLET PO (08:07)
[2020-08-11] MEDS: ENOXAPARIN 40 MG/0.4 ML SYRINGE SUB-Q (08:07)
[2020-08-11] MEDS: FERROUS SULFATE 324 MG TABLET PO (08:07)
[2020-08-11] MEDS: carvediloL 25 MG TABLET PO ×2 (08:07→20:59)
[2020-08-11 08:18] LABS: Glucose Point of Care 262 mg/dl (65-105)
[2020-08-11] MEDS: MAGNESIUM HYDROXIDE SUSP 30 ML UDC PO (10:12)
[2020-08-11 12:22] LABS: Glucose Point of Care 272 mg/dl (65-105)
[2020-08-11] MEDS: EUCERIN CREAM 454 GM JAR 1 APPLIC TOPICAL (15:23)
--- NOTE | 2020-08-11 15:39 | P.PNIM_ITS ---
Progress Note: A&P Assessment and Plan (1) Acute respiratory failure with hypoxia: Code(s): J96.01 - Acute respiratory failure with hypoxia Status: Acute Assessment and Plan: Likely multifactorial secondary to CHF exacerbation, COPD, and obesity hypoventilation syndrome. Chest x-ray on 08/09 appeared worsened with concerns for pneumonia. He has required up to 6 L supplemental O2; weaned to 5 L today. * Continue supplemental O2 with goal saturation 90% or above. Wean to goal. * He will need a home oxygen evaluation prior to discharge. * Further plan as outlined below (2) CHF (congestive heart failure), NYHA class I: Code(s): I50.9 - Heart failure, unspecified Status: Chronic Assessment and Plan: Evidence of volume overload at presentation. Echo reviewed with normal EF 50-55% and grade 1 diastolic dysfunction. He appears euvolemic at this time. * Continue PO Lasix 40 mg daily * Monitor intake and output. Daily weights. * Heart healthy diet. * Continue Coreg. (3) Pneumonia: Code(s): J18.9 - Pneumonia, unspecified organism Status: Acute Assessment and Plan: Evident on repeat CXR. * Continue IV ceftriaxone and azithromycin * continue supplemental O2 as needed * Urinary legionella and pneumococcal antigens negative * COVID-19 seems unlikely as he is fully vaccinated. If symptoms worsen or demonstrates any other signs of COVID-19, would consider testing. (4) COPD (chronic obstructive pulmonary disease): Code(s): J44.9 - Chronic obstructive pulmonary disease, unspecified Status: Acute Assessment and Plan: Presented with diffuse wheezes on exam, consistent with COPD exacerbation. O2 requirements remaining stable today. * IV Solu-Medrol 40 mg q12h * Continue nebulized breathing treatments * Continue home Symbicort * Supplemental O2 as needed * Antibiotics initiated as above (5) Obstructive sleep apnea: Code(s): G47.33 - Obstructive sleep apnea (adult) (pediatric) Status: Chronic Assessment and Plan: * Continue CPAP at night (6) CAD (coronary artery disease): Code(s): I25.10 - Atherosclerotic heart disease of [place] coronary artery without angina pectoris Status: Chronic Assessment and Plan: The patient reports history of [place] in the past however he has not had any stents placed. No CP while here. * Continue aspirin (7) Hypertension: Code(s): I10 - Essential (primary) hypertension Status: Chronic Assessment and Plan: Blood pressures reviewed and have been well controlled. Last BP 138/57 * Continue carvedilol and amlodipine (8) Anemia: Code(s): D64.9 - Anemia, unspecified Status: Chronic Assessment and Plan: Mild. H&H remaining stable. Vitals are stable and there is no evidence of blood loss. * Monitor H&H (9) Diabetes: Code(s): E11.9 - Type 2 diabetes mellitus without complications Status: Chronic Assessment and Plan: A1c is 7.1. Blood sugars have been slightly elevated, likely secondary to IV steroids. * Continue Accu-Cheks, sliding scale insulin (high dose), hypoglycemic protocol * Continue Lantus 35 units * Will add 7 units novolog scheduled with meals * Metformin has been held. Continue glipizide. Subjective Date/time seen: 08/11/20 15:39 Interval history: Date of service: 08/11/2020 Tony Ramon this 70-year-old male with a hist
--- NOTE | 2020-08-11 15:39 | PM.IMPN ---
Progress Note: A&P Assessment and Plan (1) Acute respiratory failure with hypoxia: Code(s): J96.01 - Acute respiratory failure with hypoxia Status: Acute Assessment and Plan: Likely multifactorial secondary to CHF exacerbation, COPD, and obesity hypoventilation syndrome. Chest x-ray on 08/09 appeared worsened with concerns for pneumonia. He has required up to 6 L supplemental O2; weaned to 5 L today. Continue supplemental O2 with goal saturation 90% or above. Wean to goal. He will need a home oxygen evaluation prior to discharge. Further plan as outlined below (2) CHF (congestive heart failure), NYHA class I: Code(s): I50.9 - Heart failure, unspecified Status: Chronic Assessment and Plan: Evidence of volume overload at presentation. Echo reviewed with normal EF 50-55% and grade 1 diastolic dysfunction. He appears euvolemic at this time. Continue PO Lasix 40 mg daily Monitor intake and output. Daily weights. Heart healthy diet. Continue Coreg. (3) Pneumonia: Code(s): J18.9 - Pneumonia, unspecified organism Status: Acute Assessment and Plan: Evident on repeat CXR. Continue IV ceftriaxone and azithromycin continue supplemental O2 as needed Urinary legionella and pneumococcal antigens negative COVID-19 seems unlikely as he is fully vaccinated. If symptoms worsen or demonstrates any other signs of COVID-19, would consider testing. (4) COPD (chronic obstructive pulmonary disease): Code(s): J44.9 - Chronic obstructive pulmonary disease, unspecified Status: Acute Assessment and Plan: Presented with diffuse wheezes on exam, consistent with COPD exacerbation. O2 requirements remaining stable today. IV Solu-Medrol 40 mg q12h Continue nebulized breathing treatments Continue home Symbicort Supplemental O2 as needed Antibiotics initiated as above (5) Obstructive sleep apnea: Code(s): G47.33 - Obstructive sleep apnea (adult) (pediatric) Status: Chronic Assessment and Plan: Continue CPAP at night (6) CAD (coronary artery disease): Code(s): I25.10 - Atherosclerotic heart disease of [place] coronary artery without angina pectoris Status: Chronic Assessment and Plan: The patient reports history of [place] in the past however he has not had any stents placed. No CP while here. Continue aspirin (7) Hypertension: Code(s): I10 - Essential (primary) hypertension Status: Chronic Assessment and Plan: Blood pressures reviewed and have been well controlled. Last BP 138/57 Continue carvedilol and amlodipine (8) Anemia: Code(s): D64.9 - Anemia, unspecified Status: Chronic Assessment and Plan: Mild. H&H remaining stable. Vitals are stable and there is no evidence of blood loss. Monitor H&H (9) Diabetes: Code(s): E11.9 - Type 2 diabetes mellitus without complications Status: Chronic Assessment and Plan: A1c is 7.1. Blood sugars have been slightly elevated, likely secondary to IV steroids. Continue Accu-Cheks, sliding scale insulin (high dose), hypoglycemic protocol Continue Lantus 35 units Will add 7 units novolog scheduled with meals Metformin has been held. Continue glipizide. Subjective Date/time seen: 08/11/20 15:39 Interval history: Date of service: 08/11/2020 Tony Ramon this 70-year-old male with a history of CAD, CHF, diabetes, ASHANTI, hypertension, seizure disorder, and PUD who is seen in follow-up for CHF and COPD exacerbation. He reports slow improvement and is feeling a little bit better today. He is able to breathe a little bit better. He denies wheezing. His cough is improving but he is endorsing chest congestion. He has mucus in his throat when he coughs but he is swallowing it and cannot get it out. Denies chest pain or tightness. No N/V, fever, chills, dizziness, lightheadedness. Appe
[2020-08-11 17:26] LABS: Glucose Point of Care 282 mg/dl (65-105)
[2020-08-11] MEDS: ATORVASTATIN 40 MG TABLET 80 MG PO (21:00)
[2020-08-11] MEDS: INSULIN GLARGINE (*BKC) 100 UNITS/ML 35 UNITS SUB-Q (21:01)
[2020-08-11 22:21] LABS: Glucose Point of Care 259 mg/dl (65-105)
[2020-08-12] VITALS (28 sets, daily range): BP systolic 128–146; BP diastolic 70–87; PULSE 52–78; RESP 16–20; TEMP 36–36.7; O2SAT 90–95
[2020-08-12] MEDS: methylPREDNISolone SOD SUCC 40 MG VIAL IV PUSH (02:57)
[2020-08-12] MEDS: ALBUTEROL SULFATE NEB 2.5 MG/0.5 ML INH 5 MG INHALATION ×4 (03:26→21:32)
[2020-08-12] MEDS: IPRATROPIUM BR 0.02% INH SOLN 0.5 MG/2.5 ML VIAL INHALATION ×4 (03:26→21:32)
[2020-08-12 05:38] LABS: Hemoglobin 13.4 g/dL (14.0-18.0); Mean Corpuscular HGB Conc 32.7 g/dl (32-36); Mean Corpuscular Hemoglobin 28.7 pg (26-34); Mean Corpuscular Volume 87.8 fl (80-100); Mean Platelet Volume 9.9 fl (7.4-10.4); Platelet Count Result 248 k/mm3 (150-375); Red Blood Count 4.67 M/mm3 (4.6-6.20); Red Cell Distribution Width 14.5 % (11.5-14.5); White Blood Count 10.1 K/mm3 (4.5-10.0)
[2020-08-12 05:50] LABS: Anion Gap 5 mmol/L (8-16); Blood Urea Nitrogen 35 mg/dL (9-20); Carbon Dioxide 34 mmol/L (22-30); Chloride 96 mmol/L (98-107); Estimated CRCL calculation 87 ml/min; Estimated Glomerular Filt Rate > 60; Glucose 217 mg/dL (75-110); Potassium 5.2 mmol/L (3.4-5.0); Sodium 135 mmol/L (137-145)
[2020-08-12] MEDS: guaiFENesin 12 HR 600 MG TABCR PO ×2 (06:32→17:23)
[2020-08-12] MEDS: ASPIRIN 81 MG CHEWABLE TABLET PO (08:04)
[2020-08-12] MEDS: MAGNESIUM OXIDE 400 MG TABLET PO ×2 (08:04→17:22)
[2020-08-12] MEDS: glipiZIDE 5 MG TABLET PO ×2 (08:04→16:39)
[2020-08-12] MEDS: ISOSORBIDE MONONITRATE 60 MG TAB.ER.24H 120 MG PO (08:05)
[2020-08-12] MEDS: FUROSEMIDE 40 MG TABLET PO (08:05)
[2020-08-12] MEDS: OMEGA 3 POLYUNSAT FATTY ACIDS 1 GM CAP PO ×2 (08:05→17:23)
[2020-08-12] MEDS: amLODIPine BESYLATE 5 MG TABLET PO (08:05)
[2020-08-12] MEDS: CHOLECALCIFEROL 1,000 UNITS TABLET 2000 UNITS PO (08:05)
[2020-08-12] MEDS: FERROUS SULFATE 324 MG TABLET PO (08:05)
[2020-08-12] MEDS: EUCERIN CREAM 454 GM JAR 1 APPLIC TOPICAL (08:05)
[2020-08-12] MEDS: GABAPENTIN 100 MG CAPSULE PO ×3 (08:05→16:39)
[2020-08-12] MEDS: CALCIUM CARBONATE (TUMS) 500 MG (200 MG ELEMENTAL) PO ×2 (08:06→16:40)
[2020-08-12] MEDS: ENOXAPARIN 40 MG/0.4 ML SYRINGE SUB-Q (08:06)
[2020-08-12] MEDS: INSULIN ASPART (*BKC) 100 UNITS/ML 7 UNITS SUB-Q ×3 (08:06→17:23)
[2020-08-12] MEDS: carvediloL 25 MG TABLET PO ×2 (08:06→21:32)
[2020-08-12] MEDS: INSULIN ASPART (*BKC) 100 UNITS/ML SUB-Q ×2 (08:07→11:58)
[2020-08-12 08:35] LABS: Glucose Point of Care 227 mg/dl (65-105)
[2020-08-12 12:32] LABS: Glucose Point of Care 278 mg/dl (65-105)
--- NOTE | 2020-08-12 14:13 | P.PNIM_ITS ---
Progress Note: A&P Assessment and Plan (1) Acute respiratory failure with hypoxia: Code(s): J96.01 - Acute respiratory failure with hypoxia Status: Acute Assessment and Plan: Likely multifactorial secondary to CHF exacerbation, COPD, and obesity hypoventilation syndrome. Chest x-ray on 08/09 appeared worsened with concerns for pneumonia. He has required up to 6 L supplemental O2; weaned to 2 L today. * Continue supplemental O2 with goal saturation 90% or above. Wean to goal. * He will need a home oxygen evaluation prior to discharge. * CXR in the AM * Decrease steroids today * Further plan as outlined below (2) CHF (congestive heart failure), NYHA class I: Code(s): I50.9 - Heart failure, unspecified Status: Chronic Assessment and Plan: Evidence of volume overload at presentation. Echo reviewed with normal EF 50-55% and grade 1 diastolic dysfunction. He appears euvolemic at this time. * Continue PO Lasix 40 mg daily * Monitor intake and output. Daily weights. * Heart healthy diet. * Continue Coreg. (3) Pneumonia: Code(s): J18.9 - Pneumonia, unspecified organism Status: Acute Assessment and Plan: Evident on CXR * Continue IV ceftriaxone and azithromycin * Repeat CXR tomorrow * continue supplemental O2 as needed * Urinary legionella and pneumococcal antigens negative * COVID-19 seems unlikely as he is fully vaccinated. If symptoms worsen or demonstrates any other signs of COVID-19, would consider testing. (4) COPD (chronic obstructive pulmonary disease): Code(s): J44.9 - Chronic obstructive pulmonary disease, unspecified Status: Acute Assessment and Plan: Presented with diffuse wheezes on exam, consistent with COPD exacerbation. O2 requirements improving * IV Solu-Medrol 40 mg q12h will be switched to daily * Continue nebulized breathing treatments * Continue home Symbicort * Supplemental O2 as needed * Antibiotics as above (5) Obstructive sleep apnea: Code(s): G47.33 - Obstructive sleep apnea (adult) (pediatric) Status: Chronic Assessment and Plan: * Continue CPAP at night (6) CAD (coronary artery disease): Code(s): I25.10 - Atherosclerotic heart disease of [place] coronary artery without angina pectoris Status: Chronic Assessment and Plan: The patient reports history of [place] in the past however he has not had any stents placed. No CP while here. * Continue aspirin (7) Hypertension: Code(s): I10 - Essential (primary) hypertension Status: Chronic Assessment and Plan: Blood pressures reviewed and have been well controlled. Last BP 128/74 * Continue carvedilol and amlodipine (8) Anemia: Code(s): D64.9 - Anemia, unspecified Status: Chronic Assessment and Plan: Mild. H&H remaining stable. Vitals are stable and there is no evidence of blood loss. * Monitor H&H (9) Diabetes: Code(s): E11.9 - Type 2 diabetes mellitus without complications Status: Chronic Assessment and Plan: A1c is 7.1. Blood sugars have been slightly elevated, likely secondary to IV steroids. * Continue Accu-Cheks, hypoglycemic protocol * Will decrease lantus since IV steroids are going to be decreased * Continue 7 units novolog scheduled with meals * Metformin has been held. Continue glipizide. Subjective Date/time seen: 08/12/20 14:13 Interval history: Pt is a 70-yea
--- NOTE | 2020-08-12 14:13 | PM.IMPN ---
Progress Note: A&P Assessment and Plan (1) Acute respiratory failure with hypoxia: Code(s): J96.01 - Acute respiratory failure with hypoxia Status: Acute Assessment and Plan: Likely multifactorial secondary to CHF exacerbation, COPD, and obesity hypoventilation syndrome. Chest x-ray on 08/09 appeared worsened with concerns for pneumonia. He has required up to 6 L supplemental O2; weaned to 2 L today. Continue supplemental O2 with goal saturation 90% or above. Wean to goal. He will need a home oxygen evaluation prior to discharge. CXR in the AM Decrease steroids today Further plan as outlined below (2) CHF (congestive heart failure), NYHA class I: Code(s): I50.9 - Heart failure, unspecified Status: Chronic Assessment and Plan: Evidence of volume overload at presentation. Echo reviewed with normal EF 50-55% and grade 1 diastolic dysfunction. He appears euvolemic at this time. Continue PO Lasix 40 mg daily Monitor intake and output. Daily weights. Heart healthy diet. Continue Coreg. (3) Pneumonia: Code(s): J18.9 - Pneumonia, unspecified organism Status: Acute Assessment and Plan: Evident on CXR Continue IV ceftriaxone and azithromycin Repeat CXR tomorrow continue supplemental O2 as needed Urinary legionella and pneumococcal antigens negative COVID-19 seems unlikely as he is fully vaccinated. If symptoms worsen or demonstrates any other signs of COVID-19, would consider testing. (4) COPD (chronic obstructive pulmonary disease): Code(s): J44.9 - Chronic obstructive pulmonary disease, unspecified Status: Acute Assessment and Plan: Presented with diffuse wheezes on exam, consistent with COPD exacerbation. O2 requirements improving IV Solu-Medrol 40 mg q12h will be switched to daily Continue nebulized breathing treatments Continue home Symbicort Supplemental O2 as needed Antibiotics as above (5) Obstructive sleep apnea: Code(s): G47.33 - Obstructive sleep apnea (adult) (pediatric) Status: Chronic Assessment and Plan: Continue CPAP at night (6) CAD (coronary artery disease): Code(s): I25.10 - Atherosclerotic heart disease of [place] coronary artery without angina pectoris Status: Chronic Assessment and Plan: The patient reports history of [place] in the past however he has not had any stents placed. No CP while here. Continue aspirin (7) Hypertension: Code(s): I10 - Essential (primary) hypertension Status: Chronic Assessment and Plan: Blood pressures reviewed and have been well controlled. Last BP 128/74 Continue carvedilol and amlodipine (8) Anemia: Code(s): D64.9 - Anemia, unspecified Status: Chronic Assessment and Plan: Mild. H&H remaining stable. Vitals are stable and there is no evidence of blood loss. Monitor H&H (9) Diabetes: Code(s): E11.9 - Type 2 diabetes mellitus without complications Status: Chronic Assessment and Plan: A1c is 7.1. Blood sugars have been slightly elevated, likely secondary to IV steroids. Continue Accu-Cheks, hypoglycemic protocol Will decrease lantus since IV steroids are going to be decreased Continue 7 units novolog scheduled with meals Metformin has been held. Continue glipizide. Subjective Date/time seen: 08/12/20 14:13 Interval history: Pt is a 70-year-old male here for CHF versus pneumonia. Patient was seen today and he is feeling better and now on 2L of o2. He continues to have a slight nonproductive cough. He is able to walk to the bathroom and back without shortness of breath. He denies chest pain, nausea, vomiting, fevers, chills, diarrhea or constipation. His last bowel movement was yesterday. Exam Narrative: Exam Narrative: General: Overweight patient resting comfortably on the side of the bed in no acute distress HEENT: norm
[2020-08-12 20:40] LABS: Glucose Point of Care 214 mg/dl (65-105)
[2020-08-12 20:40] LABS: Glucose Point of Care 184 mg/dl (65-105)
[2020-08-12] MEDS: ATORVASTATIN 40 MG TABLET 80 MG PO (21:34)
[2020-08-12] MEDS: INSULIN GLARGINE (*BKC) 100 UNITS/ML 20 UNITS SUB-Q (21:35)
[2020-08-13] VITALS (24 sets, daily range): BP systolic 112–141; BP diastolic 64–83; PULSE 59–86; RESP 18–22; TEMP 36.1–36.9; O2SAT 86–99
[2020-08-13] MEDS: IPRATROPIUM BR 0.02% INH SOLN 0.5 MG/2.5 ML VIAL INHALATION ×4 (02:48→20:59)
[2020-08-13] MEDS: ALBUTEROL SULFATE NEB 2.5 MG/0.5 ML INH 5 MG INHALATION ×4 (02:48→20:58)
[2020-08-13 05:59] LABS: Hematocrit 42.2 % (42.0-52.0); Hemoglobin 13.5 g/dL (14.0-18.0); Mean Corpuscular Hemoglobin 28.5 pg (26-34); Mean Platelet Volume 10.1 fl (7.4-10.4); Platelet Count Result 250 k/mm3 (150-375); Red Blood Count 4.74 M/mm3 (4.6-6.20); Red Cell Distribution Width 14.3 % (11.5-14.5); White Blood Count 11.2 K/mm3 (4.5-10.0)
[2020-08-13] MEDS: guaiFENesin 12 HR 600 MG TABCR PO ×2 (06:08→17:43)
[2020-08-13 06:40] LABS: Anion Gap 5 mmol/L (8-16); Blood Urea Nitrogen 36 mg/dL (9-20); Calcium 8.7 mg/dL (8.4-10.2); Carbon Dioxide 32 mmol/L (22-30); Chloride 97 mmol/L (98-107); Estimated CRCL calculation 97 ml/min; Estimated Glomerular Filt Rate > 60; Glucose 108 mg/dL (75-110); Potassium 4.3 mmol/L (3.4-5.0); Sodium 134 mmol/L (137-145)
[2020-08-13 08:11] LABS: Glucose Point of Care 155 mg/dl (65-105)
[2020-08-13] MEDS: ASPIRIN 81 MG CHEWABLE TABLET PO (08:58)
[2020-08-13] MEDS: glipiZIDE 5 MG TABLET PO ×2 (08:58→17:44)
[2020-08-13] MEDS: OMEGA 3 POLYUNSAT FATTY ACIDS 1 GM CAP PO ×2 (08:59→17:44)
[2020-08-13] MEDS: CHOLECALCIFEROL 1,000 UNITS TABLET 2000 UNITS PO (08:59)
[2020-08-13] MEDS: FERROUS SULFATE 324 MG TABLET PO (08:59)
[2020-08-13] MEDS: ISOSORBIDE MONONITRATE 60 MG TAB.ER.24H 120 MG PO (08:59)
[2020-08-13] MEDS: GABAPENTIN 100 MG CAPSULE PO ×3 (08:59→17:44)
[2020-08-13] MEDS: FUROSEMIDE 40 MG TABLET PO (08:59)
[2020-08-13] MEDS: EUCERIN CREAM 454 GM JAR 1 APPLIC TOPICAL (09:01)
[2020-08-13] MEDS: CALCIUM CARBONATE (TUMS) 500 MG (200 MG ELEMENTAL) PO ×2 (09:01→17:43)
[2020-08-13] MEDS: MAGNESIUM OXIDE 400 MG TABLET PO ×2 (09:01→17:43)
[2020-08-13] MEDS: amLODIPine BESYLATE 5 MG TABLET PO (09:01)
[2020-08-13] MEDS: ENOXAPARIN 40 MG/0.4 ML SYRINGE SUB-Q (09:02)
[2020-08-13] MEDS: carvediloL 25 MG TABLET PO ×2 (09:02→21:01)
[2020-08-13] MEDS: methylPREDNISolone SOD SUCC 40 MG VIAL IV PUSH (09:03)
--- NOTE | 2020-08-13 10:26 | ECG_ITS ---
Measurements Intervals [place] Rate: 62 P: 54 [place]: 172 QRS: 7 QRSD: 101 T: 37 QT: 415 QTc: 424 Interpretive Statements SINUS RHYTHM POOR R WAVE PROGRESSION, ANTERIOR LEADS BASELINE ARTIFACT- I, II, III, AVR, AVF, V1 BORDERLINE ECG Electronically Signed On 08-13-2020 10:53:21 CDT by Hunter Pagan D.O.
--- NOTE | 2020-08-13 10:35 | PCNWS ---
Weekly nutritional screen. Patient is tolerating current diet and has a good appetite. Patient is consuming 100% of his meals. No weight loss reported. No nutritional needs at this time.
--- NOTE | 2020-08-13 10:37 | P.PNIM_ITS ---
Progress Note: A&P Assessment and Plan (1) Acute respiratory failure with hypoxia: Code(s): J96.01 - Acute respiratory failure with hypoxia Status: Acute Assessment and Plan: Likely multifactorial secondary to CHF exacerbation, COPD, and obesity hypoventilation syndrome. Chest x-ray on 08/09 appeared worsened with concerns for pneumonia and today's chest x-ray was unchanged. He has required up to 6 L supplemental O2 and was down to 2 L yesterday but now is back up to 6 L * Will obtain CTA to assess for PE and additional lung pathology since pt is waxing and waning. * Check trop and EKG as the pt is also having some slight chest pressure now. Place back on tele * Continue supplemental O2 with goal saturation 90% or above. Wean to goal. * Steroids were decreased yesterday which may be while he relapsed a bit today. Await results of above before re-adjusting (2) CHF (congestive heart failure), NYHA class I: Code(s): I50.9 - Heart failure, unspecified Status: Chronic Assessment and Plan: Evidence of volume overload at presentation. Echo reviewed with normal EF 50-55% and grade 1 diastolic dysfunction. He appears euvolemic at this time. * Continue PO Lasix 40 mg daily * Heart healthy diet. * Continue Coreg. (3) Pneumonia: Code(s): J18.9 - Pneumonia, unspecified organism Status: Acute Assessment and Plan: Evident on CXR * Continue IV ceftriaxone and azithromycin * CTA ordered * continue supplemental O2 as needed * Urinary legionella and pneumococcal antigens negative * COVID-19 seems unlikely as he is fully vaccinated. Await CTA, consider testing if it is consistent with COVID. (4) COPD (chronic obstructive pulmonary disease): Code(s): J44.9 - Chronic obstructive pulmonary disease, unspecified Status: Acute Assessment and Plan: Presented with diffuse wheezes on exam, consistent with COPD exacerbation. O2 requirements improving * IV Solu-Medrol 40mg daily, may adjust depending on above work up * Continue nebulized breathing treatments * Continue home Symbicort * Supplemental O2 as needed * Antibiotics as above (5) Obstructive sleep apnea: Code(s): G47.33 - Obstructive sleep apnea (adult) (pediatric) Status: Chronic Assessment and Plan: * Continue CPAP at night (6) CAD (coronary artery disease): Code(s): I25.10 - Atherosclerotic heart disease of [place] coronary artery without angina pectoris Status: Chronic Assessment and Plan: The patient reports history of [place] in the past however he has not had any stents placed. * Pt started having light chest pressure today. Order EKG, trop x 3 and tele * Continue aspirin (7) Hypertension: Code(s): I10 - Essential (primary) hypertension Status: Chronic Assessment and Plan: Blood pressures reviewed and have been well controlled. Last BP 129/70 * Continue carvedilol and amlodipine (8) Anemia: Code(s): D64.9 - Anemia, unspecified Status: Chronic Assessment and Plan: Mild. H&H remaining stable. Vitals are stable and there is no evidence of blood loss. * Monitor H&H (9) Diabetes: Code(s): E11.9 - Type 2 diabetes mellitus without complications Status: Chronic Assessment and Plan: A1c is 7.1. Blood sugars have been slightly elevated, likely secondary to IV steroids. * Continue Accu-Cheks, hypoglycemic protocol * Continue d
--- NOTE | 2020-08-13 10:37 | PM.IMPN ---
Progress Note: A&P Assessment and Plan (1) Acute respiratory failure with hypoxia: Code(s): J96.01 - Acute respiratory failure with hypoxia Status: Acute Assessment and Plan: Likely multifactorial secondary to CHF exacerbation, COPD, and obesity hypoventilation syndrome. Chest x-ray on 08/09 appeared worsened with concerns for pneumonia and today's chest x-ray was unchanged. He has required up to 6 L supplemental O2 and was down to 2 L yesterday but now is back up to 6 L Will obtain CTA to assess for PE and additional lung pathology since pt is waxing and waning. Check trop and EKG as the pt is also having some slight chest pressure now. Place back on tele Continue supplemental O2 with goal saturation 90% or above. Wean to goal. Steroids were decreased yesterday which may be while he relapsed a bit today. Await results of above before re-adjusting (2) CHF (congestive heart failure), NYHA class I: Code(s): I50.9 - Heart failure, unspecified Status: Chronic Assessment and Plan: Evidence of volume overload at presentation. Echo reviewed with normal EF 50-55% and grade 1 diastolic dysfunction. He appears euvolemic at this time. Continue PO Lasix 40 mg daily Heart healthy diet. Continue Coreg. (3) Pneumonia: Code(s): J18.9 - Pneumonia, unspecified organism Status: Acute Assessment and Plan: Evident on CXR Continue IV ceftriaxone and azithromycin CTA ordered continue supplemental O2 as needed Urinary legionella and pneumococcal antigens negative COVID-19 seems unlikely as he is fully vaccinated. Await CTA, consider testing if it is consistent with COVID. (4) COPD (chronic obstructive pulmonary disease): Code(s): J44.9 - Chronic obstructive pulmonary disease, unspecified Status: Acute Assessment and Plan: Presented with diffuse wheezes on exam, consistent with COPD exacerbation. O2 requirements improving IV Solu-Medrol 40mg daily, may adjust depending on above work up Continue nebulized breathing treatments Continue home Symbicort Supplemental O2 as needed Antibiotics as above (5) Obstructive sleep apnea: Code(s): G47.33 - Obstructive sleep apnea (adult) (pediatric) Status: Chronic Assessment and Plan: Continue CPAP at night (6) CAD (coronary artery disease): Code(s): I25.10 - Atherosclerotic heart disease of [place] coronary artery without angina pectoris Status: Chronic Assessment and Plan: The patient reports history of [place] in the past however he has not had any stents placed. Pt started having light chest pressure today. Order EKG, trop x 3 and tele Continue aspirin (7) Hypertension: Code(s): I10 - Essential (primary) hypertension Status: Chronic Assessment and Plan: Blood pressures reviewed and have been well controlled. Last BP 129/70 Continue carvedilol and amlodipine (8) Anemia: Code(s): D64.9 - Anemia, unspecified Status: Chronic Assessment and Plan: Mild. H&H remaining stable. Vitals are stable and there is no evidence of blood loss. Monitor H&H (9) Diabetes: Code(s): E11.9 - Type 2 diabetes mellitus without complications Status: Chronic Assessment and Plan: A1c is 7.1. Blood sugars have been slightly elevated, likely secondary to IV steroids. Continue Accu-Cheks, hypoglycemic protocol Continue decreased dose of lantus Switch to SSI Metformin has been held. Continue glipizide. Subjective Date/time seen: 08/13/20 10:37 Interval history: Pt is a 70-year-old male here for CHF and PNA. Patient was seen today and states he was feeling short of breath while lying down and walking to the bathroom. He feels worse than he did yesterday. He has no shortness of breath at rest. He has noticed some chest pressure in his chest starting this morning that comes and goes. It i
[2020-08-13 11:21] LABS: Troponin I < 0.012 ng/mL (0.000-0.034)
[2020-08-13 11:37] LABS: NT Pro B Type Natriuretic Pept 243 pg/mL (5-100)
[2020-08-13 11:46] LABS: Glucose Point of Care 218 mg/dl (65-105)
--- NOTE | 2020-08-13 12:03 | PCNSR ---
On 08/13/20, the student,Cristy Cooley, provided care and completed [facility] documentation on this patient. I have reviewed the student's documentation and agree with the findings.
[2020-08-13] MEDS: INSULIN ASPART (*BKC) 100 UNITS/ML 7 UNITS SUB-Q ×2 (12:18→17:48)
[2020-08-13] MEDS: INSULIN ASPART (*BKC) 100 UNITS/ML SUB-Q ×2 (12:19→17:49)
--- NOTE | 2020-08-13 14:02 | PCRCNOTE ---
HOME O2 EVAL ATTEMPTED, PT REQUIRES 6 L AT REST. PT DESATS TO 85-85% ON 6L WITH MINIMAL EXERTION.
[2020-08-13 14:31] LABS: Troponin I < 0.012 ng/mL (0.000-0.034)
[2020-08-13 17:06] LABS: Glucose Point of Care 252 mg/dl (65-105)
[2020-08-13 17:15] LABS: Troponin I < 0.012 ng/mL (0.000-0.034)
[2020-08-13] MEDS: DEXAMETHASONE SOD PHOS INJ 4 MG/ML VIAL 6 MG IV PUSH (17:42)
[2020-08-13 20:51] LABS: Glucose Point of Care 293 mg/dl (65-105)
[2020-08-13] MEDS: ATORVASTATIN 40 MG TABLET 80 MG PO (20:54)
[2020-08-13] MEDS: INSULIN GLARGINE (*BKC) 100 UNITS/ML 20 UNITS SUB-Q (20:54)
[2020-08-14] VITALS (20 sets, daily range): BP systolic 117–143; BP diastolic 68–83; PULSE 58–69; RESP 18–22; TEMP 36.1–36.6; O2SAT 89–92
[2020-08-14] MEDS: ALBUTEROL SULFATE NEB 2.5 MG/0.5 ML INH 5 MG INHALATION ×4 (02:48→20:14)
[2020-08-14] MEDS: IPRATROPIUM BR 0.02% INH SOLN 0.5 MG/2.5 ML VIAL INHALATION ×4 (02:48→20:14)
[2020-08-14] MEDS: glipiZIDE 5 MG TABLET PO ×2 (06:15→17:57)
[2020-08-14] MEDS: guaiFENesin 12 HR 600 MG TABCR PO ×2 (06:15→17:57)
[2020-08-14 06:39] LABS: Hematocrit 41.9 % (42.0-52.0); Hemoglobin 13.5 g/dL (14.0-18.0); Mean Corpuscular HGB Conc 32.2 g/dl (32-36); Mean Corpuscular Hemoglobin 28.4 pg (26-34); Mean Corpuscular Volume 88.2 fl (80-100); Mean Platelet Volume 10.2 fl (7.4-10.4); Platelet Count Result 291 k/mm3 (150-375); Red Blood Count 4.75 M/mm3 (4.6-6.20); Red Cell Distribution Width 14.2 % (11.5-14.5); White Blood Count 10.2 K/mm3 (4.5-10.0)
[2020-08-14 07:07] LABS: Band Neutrophils Percent 5 % (0-6); Lymphocytes Absolute Manual 0.91 K/mm3 (1.1-4.5); Monocytes Absolute Manual 0.91 K/mm3 (0.1-0.90); Monocytes Percent Manual 9 % (3-9); Neutrophils Absolute Manual 8.36 K/mm3 (1.3-6.7); Neutrophils Percent Manual 77 % (46-73); Platelet Estimate Adequate (Adequate); Total Cells Counted 100
[2020-08-14 08:14] LABS: Glucose Point of Care 211 mg/dl (65-105)
[2020-08-14 08:22] LABS: Alanine Aminotransferase 25 U/L (4-50); Albumin Level 3.6 g/dL (3.5-5.1); Alkaline Phosphatase 70 U/L (38-126); Anion Gap 6 mmol/L (8-16); Aspartate Amino Transferase 18 U/L (17-59); Bilirubin,Total 0.7 mg/dL (0.2-1.3); Blood Urea Nitrogen 36 mg/dL (9-20); Calcium 8.8 mg/dL (8.4-10.2); Carbon Dioxide 30 mmol/L (22-30); Chloride 95 mmol/L (98-107); Estimated CRCL calculation 97 ml/min; Estimated Glomerular Filt Rate > 60; Glucose 219 mg/dL (75-110); Potassium 4.5 mmol/L (3.4-5.0); Sodium 131 mmol/L (137-145)
[2020-08-14] MEDS: MAGNESIUM HYDROXIDE SUSP 30 ML UDC PO ×2 (09:14→20:56)
[2020-08-14] MEDS: OMEGA 3 POLYUNSAT FATTY ACIDS 1 GM CAP PO ×2 (09:16→17:57)
[2020-08-14] MEDS: FUROSEMIDE 40 MG TABLET PO (09:16)
[2020-08-14] MEDS: CALCIUM CARBONATE (TUMS) 500 MG (200 MG ELEMENTAL) PO ×2 (09:16→18:00)
[2020-08-14] MEDS: ACETAMINOPHEN 325 MG TABLET 650 MG PO (09:16)
[2020-08-14] MEDS: ISOSORBIDE MONONITRATE 60 MG TAB.ER.24H 120 MG PO (09:16)
[2020-08-14] MEDS: amLODIPine BESYLATE 5 MG TABLET PO (09:17)
[2020-08-14] MEDS: ENOXAPARIN 40 MG/0.4 ML SYRINGE SUB-Q (09:17)
[2020-08-14] MEDS: CHOLECALCIFEROL 1,000 UNITS TABLET 2000 UNITS PO (09:17)
[2020-08-14] MEDS: GABAPENTIN 100 MG CAPSULE PO ×3 (09:17→17:57)
[2020-08-14] MEDS: carvediloL 25 MG TABLET PO ×2 (09:18→20:53)
[2020-08-14] MEDS: DEXAMETHASONE SOD PHOS INJ 4 MG/ML VIAL 6 MG IV PUSH ×2 (09:18→17:57)
[2020-08-14] MEDS: ASPIRIN 81 MG CHEWABLE TABLET PO (09:18)
[2020-08-14] MEDS: MAGNESIUM OXIDE 400 MG TABLET PO ×2 (09:18→17:57)
[2020-08-14] MEDS: INSULIN ASPART (*BKC) 100 UNITS/ML SUB-Q ×2 (09:19→17:59)
[2020-08-14] MEDS: INSULIN ASPART (*BKC) 100 UNITS/ML 7 UNITS SUB-Q ×3 (09:19→17:58)
[2020-08-14] MEDS: EUCERIN CREAM 454 GM JAR 1 APPLIC TOPICAL (09:26)
[2020-08-14 12:03] LABS: Glucose Point of Care 232 mg/dl (65-105)
--- NOTE | 2020-08-14 12:50 | PM.IMPN ---
Progress Note: A&P Assessment and Plan (1) Acute respiratory failure with hypoxia: Code(s): J96.01 - Acute respiratory failure with hypoxia Status: Acute Assessment and Plan: Likely multifactorial secondary to CHF exacerbation, COPD, pneumonia,and obesity hypoventilation syndrome. -CTA done yesterday which showed atypical pneumonia concerning for COVID-19. no PE - PCR COVID-19 testing is pending and I will also order influenza testing -continue oxygen as needed for saturation less than 90 -continue antibiotics. If the above is negative may consider broadening antibiotics - steroid switch to dexamethasone (2) CHF (congestive heart failure), NYHA class I: Code(s): I50.9 - Heart failure, unspecified Status: Chronic Assessment and Plan: Evidence of volume overload at presentation. Echo reviewed with normal EF 50-55% and grade 1 diastolic dysfunction. - continue p.o. Lasix 40 mg daily but add 20 mg IV this afternoon - continue heart healthy diet as well as Coreg (3) Pneumonia: Code(s): J18.9 - Pneumonia, unspecified organism Status: Acute Assessment and Plan: Evident on CXR - see above - viral versus bacterial - continue antibiotics, oxygen, await testing -Urinary legionella and pneumococcal antigens negative - patient is fully vaccinated with phizer vaccine (4) COPD (chronic obstructive pulmonary disease): Code(s): J44.9 - Chronic obstructive pulmonary disease, unspecified Status: Acute Assessment and Plan: continue steroids, Symbicort and antibiotics (5) Obstructive sleep apnea: Code(s): G47.33 - Obstructive sleep apnea (adult) (pediatric) Status: Chronic Assessment and Plan: Continue CPAP at night (6) CAD (coronary artery disease): Code(s): I25.10 - Atherosclerotic heart disease of [place] coronary artery without angina pectoris Status: Chronic Assessment and Plan: The patient reports history of [place] in the past however he has not had any stents placed. - chest pain yesterday with negative troponins and a BNP which has actually improved - monitor on tele, continue aspirin (7) Hypertension: Code(s): I10 - Essential (primary) hypertension Status: Chronic Assessment and Plan: Blood pressures reviewed and have been well controlled. Last BP 120/68 -Continue carvedilol and amlodipine (8) Anemia: Code(s): D64.9 - Anemia, unspecified Status: Chronic Assessment and Plan: Mild. H&H remaining stable. Vitals are stable and there is no evidence of blood loss. -Monitor H&H (9) Diabetes: Code(s): E11.9 - Type 2 diabetes mellitus without complications Status: Chronic Assessment and Plan: A1c is 7.1. Blood sugars have been slightly elevated, likely secondary to IV steroids. -Continue Accu-Cheks, hypoglycemic protocol -Continue lantus ( increased dose) - continue sliding scale insulin -Metformin has been held. Continue glipizide. Subjective Date/time seen: 08/14/20 12:50 Interval history: Pt is a 70-year-old male here for CHF and PNA. Patient was seen today and is doing well. His cough is better and he is able to walk to the bathroom without shortness of breath. He has no shortness of breath at rest but does feel a little short of breath when he lays flat. His lower extremity swelling has improved. He is eating and drinking well and does not have any issues with smell or taste. No chest pain today. Exam Narrative: Exam Narrative: General: Overweight patient resting comfortably on the side of the bed in no acute distress HEENT: normocephalic 4L of oxygen applied via nasal cannula Neck: supple Neuro: Alert and oriented x4 CV: Regular rate and rhythm. No pain to palpation to the chest Resp: Decreased breath sounds throughout with no wheezing today. Nonlabored breathing. No conversational dyspn
[2020-08-14] MEDS: FERROUS SULFATE 324 MG TABLET PO (13:39)
[2020-08-14 16:46] LABS: Influenza Control Positive
[2020-08-14 16:53] LABS: Glucose Point of Care 225 mg/dl (65-105)
[2020-08-14 16:57] LABS: SARS-CoV-2 RNA PCR Positive
[2020-08-14] MEDS: FUROSEMIDE INJ 40 MG/4 ML VIAL 20 MG IV PUSH (18:05)
[2020-08-14] MEDS: ATORVASTATIN 40 MG TABLET 80 MG PO (20:53)
[2020-08-14] MEDS: INSULIN GLARGINE (*BKC) 100 UNITS/ML 30 UNITS SUB-Q (21:05)
[2020-08-14 21:06] LABS: Glucose Point of Care 238 mg/dl (65-105)
[2020-08-15] VITALS (17 sets, daily range): BP systolic 109–147; BP diastolic 51–87; PULSE 55–74; RESP 16–20; TEMP 36.1–36.9; O2SAT 91–94
[2020-08-15 06:12] LABS: Hematocrit 41.1 % (42.0-52.0); Hemoglobin 13.2 g/dL (14.0-18.0); Mean Corpuscular HGB Conc 32.1 g/dl (32-36); Mean Corpuscular Hemoglobin 28.2 pg (26-34); Mean Corpuscular Volume 87.8 fl (80-100); Mean Platelet Volume 10.4 fl (7.4-10.4); Platelet Count Result 327 k/mm3 (150-375); Red Blood Count 4.68 M/mm3 (4.6-6.20); Red Cell Distribution Width 14.2 % (11.5-14.5); White Blood Count 12.4 K/mm3 (4.5-10.0)
[2020-08-15 06:27] LABS: Anion Gap 8 mmol/L (8-16); Blood Urea Nitrogen 40 mg/dL (9-20); CRP 1.9 mg/dL (<1.0); Calcium 8.7 mg/dL (8.4-10.2); Carbon Dioxide 29 mmol/L (22-30); Chloride 95 mmol/L (98-107); Estimated CRCL calculation 89 ml/min; Estimated Glomerular Filt Rate > 60; Glucose 207 mg/dL (75-110); Lactate Dehydrogenase 524 U/L (313-618); Magnesium 2.3 mg/dL (1.6-2.3); Potassium 4.6 mmol/L (3.4-5.0); Sodium 132 mmol/L (137-145)
[2020-08-15] MEDS: guaiFENesin 12 HR 600 MG TABCR PO ×2 (06:35→16:36)
[2020-08-15 06:45] LABS: Band Neutrophils Percent 7 % (0-6); Eosinophils Absolute Manual 0.24 K/mm3 (0.02-0.5); Eosinophils Percent Manual 2 % (0-4); Lymphocytes Absolute Manual 0.86 K/mm3 (1.1-4.5); Metamyelocytes Percent 1 %; Monocytes Absolute Manual 0.49 K/mm3 (0.1-0.90); Monocytes Percent Manual 4 % (3-9); Neutrophils Absolute Manual 10.66 K/mm3 (1.3-6.7); Neutrophils Percent Manual 79 % (46-73); Total Cells Counted 100
[2020-08-15 06:47] LABS: Ovalocytes 1+ (NORMAL); Platelet Estimate Adequate (Adequate)
[2020-08-15 07:33] LABS: Alanine Aminotransferase 26 U/L (4-50)
[2020-08-15 07:34] LABS: INR 0.9
[2020-08-15 08:59] LABS: Glucose Point of Care 190 mg/dl (65-105)
[2020-08-15] MEDS: ASPIRIN 81 MG CHEWABLE TABLET PO (09:46)
[2020-08-15] MEDS: amLODIPine BESYLATE 5 MG TABLET PO (09:46)
[2020-08-15] MEDS: GABAPENTIN 100 MG CAPSULE PO ×3 (09:46→16:37)
[2020-08-15] MEDS: OMEGA 3 POLYUNSAT FATTY ACIDS 1 GM CAP PO ×2 (09:46→16:38)
[2020-08-15] MEDS: ISOSORBIDE MONONITRATE 60 MG TAB.ER.24H 120 MG PO (09:46)
[2020-08-15] MEDS: FUROSEMIDE 40 MG TABLET PO (09:46)
[2020-08-15] MEDS: carvediloL 25 MG TABLET PO ×2 (09:46→22:15)
[2020-08-15] MEDS: glipiZIDE 5 MG TABLET PO ×2 (09:46→16:36)
[2020-08-15] MEDS: FERROUS SULFATE 324 MG TABLET PO (09:47)
[2020-08-15] MEDS: MAGNESIUM OXIDE 400 MG TABLET PO ×2 (09:47→16:37)
[2020-08-15] MEDS: CHOLECALCIFEROL 1,000 UNITS TABLET 2000 UNITS PO (09:47)
[2020-08-15] MEDS: EUCERIN CREAM 454 GM JAR 1 APPLIC TOPICAL (09:48)
[2020-08-15] MEDS: ENOXAPARIN 40 MG/0.4 ML SYRINGE SUB-Q ×2 (09:48→22:15)
[2020-08-15] MEDS: INSULIN ASPART (*BKC) 100 UNITS/ML 7 UNITS SUB-Q ×3 (09:49→16:40)
--- NOTE | 2020-08-15 10:19 | PCRCNOTE ---
Window of time for administration has passed. See next scheduled administration.
[2020-08-15] MEDS: REMDESIVIR 200 MG/NS 250 ML 200 MG/250 ML BAG 250 MG IVPB (11:51)
[2020-08-15] MEDS: CALCIUM CARBONATE (TUMS) 500 MG (200 MG ELEMENTAL) PO ×2 (11:51→16:41)
[2020-08-15] MEDS: MAGNESIUM HYDROXIDE SUSP 30 ML UDC PO (12:00)
[2020-08-15 12:04] LABS: Glucose Point of Care 192 mg/dl (65-105)
--- NOTE | 2020-08-15 13:41 | PM.IMPN ---
Progress Note: A&P Assessment and Plan (1) Pneumonia due to COVID-19 virus: Code(s): U07.1 - COVID-19; J12.82 - Pneumonia due to coronavirus disease 2019 Status: Acute Assessment and Plan: Pt symptoms were concerning for COVID and PCR has confirmed this -CT also showing bilateral PNA, c/w COVID - Remdesivir, dexamethasone and b.i.d. Lovenox started - continue oxygen as needed for sats less than 90 - will order convalescent plasma - monitor respiratory status closely - patient was vaccinated with the Pfizer vaccine and appears to be a breakthrough case (2) Acute respiratory failure with hypoxia: Code(s): J96.01 - Acute respiratory failure with hypoxia Status: Acute Assessment and Plan: As above (3) CHF (congestive heart failure), NYHA class I: Code(s): I50.9 - Heart failure, unspecified Status: Chronic Assessment and Plan: Evidence of volume overload at presentation. Echo reviewed with normal EF 50-55% and grade 1 diastolic dysfunction. - continue p.o. Lasix 40 mg daily - continue heart healthy diet as well as Coreg (4) Pneumonia: Code(s): J18.9 - Pneumonia, unspecified organism Status: Acute Assessment and Plan: Evident on CXR - see above -Urinary legionella and pneumococcal antigens negative (5) COPD (chronic obstructive pulmonary disease): Code(s): J44.9 - Chronic obstructive pulmonary disease, unspecified Status: Acute Assessment and Plan: continue steroids, Symbicort and antibiotics (6) Obstructive sleep apnea: Code(s): G47.33 - Obstructive sleep apnea (adult) (pediatric) Status: Chronic Assessment and Plan: Continue CPAP at night (7) CAD (coronary artery disease): Code(s): I25.10 - Atherosclerotic heart disease of [place] coronary artery without angina pectoris Status: Chronic Assessment and Plan: The patient reports history of [place] in the past however he has not had any stents placed. - chest pain a few days ago with negative troponins and a BNP which has actually improved - monitor on tele, continue aspirin (8) Hypertension: Code(s): I10 - Essential (primary) hypertension Status: Chronic Assessment and Plan: Blood pressures reviewed and have been well controlled. Last BP 114/73 -Continue carvedilol and amlodipine (9) Anemia: Code(s): D64.9 - Anemia, unspecified Status: Chronic Assessment and Plan: Mild. H&H remaining stable. Vitals are stable and there is no evidence of blood loss. -Monitor H&H (10) Diabetes: Code(s): E11.9 - Type 2 diabetes mellitus without complications Status: Chronic Assessment and Plan: A1c is 7.1. Blood sugars have been slightly elevated, likely secondary to IV steroids. -Continue Accu-Cheks, hypoglycemic protocol -Continue lantus - continue sliding scale insulin -Metformin has been held. Continue glipizide. Subjective Date/time seen: 08/15/20 13:41 Interval history: Pt is a 70-year-old male here for CHF and PNA. Patient was seen today and is doing well. His cough is better and he is able to walk to the bathroom without shortness of breath. No real change since yesterday. His lower extremity swelling has improved. He is eating and drinking well and does not have any issues with smell or taste. No chest pain today. Exam Narrative: Exam Narrative: General: Overweight patient resting comfortably on the side of the bed in no acute distress HEENT: normocephalic 4L of oxygen applied via nasal cannula Neck: supple Neuro: Alert and oriented x4 CV: Regular rate and rhythm. No pain to palpation to the chest Resp: Decreased breath sounds throughout with slight wheeze in the left lung. Nonlabored breathing. No conversational dyspnea Abd: Soft, non distended. No pain to palpation. Positive bowel sounds Extremities: Trace ed
[2020-08-15] MEDS: IPRATROPIUM BR 0.02% INH SOLN 0.5 MG/2.5 ML VIAL INHALATION ×2 (13:42→19:46)
[2020-08-15] MEDS: ALBUTEROL SULFATE NEB 2.5 MG/0.5 ML INH 5 MG INHALATION ×2 (13:42→19:45)
[2020-08-15 16:40] LABS: Glucose Point of Care 94 mg/dl (65-105)
--- NOTE | 2020-08-15 20:07 | PCRCNOTE ---
Pt states he needs no assistance applying CPAP.
[2020-08-15] MEDS: ATORVASTATIN 40 MG TABLET 80 MG PO (22:15)
[2020-08-15] MEDS: INSULIN GLARGINE (*BKC) 100 UNITS/ML 30 UNITS SUB-Q (22:22)
[2020-08-15 22:28] LABS: Glucose Point of Care 163 mg/dl (65-105)
[2020-08-15] MEDS: SODIUM CHLORIDE 0.9% IV 250 ML 30 ML IV CONT (22:28)
[2020-08-15] MEDS: TUBING, BLOOD PLUM PUMP TUBING 1 EACH XX (22:28)
[2020-08-16] VITALS (18 sets, daily range): BP systolic 94–125; BP diastolic 51–77; PULSE 53–72; RESP 16–24; TEMP 36.2–37.2; O2SAT 90–95
[2020-08-16] MEDS: IPRATROPIUM BR 0.02% INH SOLN 0.5 MG/2.5 ML VIAL INHALATION ×4 (02:37→21:36)
[2020-08-16] MEDS: ALBUTEROL SULFATE NEB 2.5 MG/0.5 ML INH 5 MG INHALATION ×4 (02:37→21:35)
[2020-08-16] MEDS: guaiFENesin 12 HR 600 MG TABCR PO ×2 (05:55→16:59)
[2020-08-16 06:13] LABS: Hemoglobin 12.8 g/dL (14.0-18.0); Mean Corpuscular Hemoglobin 28.2 pg (26-34); Mean Corpuscular Volume 88.1 fl (80-100); Mean Platelet Volume 10.1 fl (7.4-10.4); Platelet Count Result 331 k/mm3 (150-375); Red Blood Count 4.54 M/mm3 (4.6-6.20); Red Cell Distribution Width 14.3 % (11.5-14.5); White Blood Count 11.8 K/mm3 (4.5-10.0)
[2020-08-16 06:26] LABS: Prothrombin Time 13.5 Seconds (11.1-14.7)
[2020-08-16 06:39] LABS: Alanine Aminotransferase 24 U/L (4-50); Anion Gap 4 mmol/L (8-16); Blood Urea Nitrogen 35 mg/dL (9-20); CRP 1.2 mg/dL (<1.0); Calcium 8.4 mg/dL (8.4-10.2); Carbon Dioxide 33 mmol/L (22-30); Chloride 96 mmol/L (98-107); Estimated CRCL calculation 81 ml/min; Estimated Glomerular Filt Rate 60; Glucose 102 mg/dL (75-110); Potassium 4.2 mmol/L (3.4-5.0); Sodium 133 mmol/L (137-145)
[2020-08-16 09:02] LABS: Glucose Point of Care 94 mg/dl (65-105)
[2020-08-16] MEDS: MAGNESIUM OXIDE 400 MG TABLET PO ×2 (09:25→16:58)
[2020-08-16] MEDS: GABAPENTIN 100 MG CAPSULE PO ×3 (09:25→16:59)
[2020-08-16] MEDS: OMEGA 3 POLYUNSAT FATTY ACIDS 1 GM CAP PO ×2 (09:25→16:59)
[2020-08-16] MEDS: ISOSORBIDE MONONITRATE 60 MG TAB.ER.24H 120 MG PO (09:25)
[2020-08-16] MEDS: glipiZIDE 5 MG TABLET PO ×2 (09:26→16:59)
[2020-08-16] MEDS: CHOLECALCIFEROL 1,000 UNITS TABLET 2000 UNITS PO (09:26)
[2020-08-16] MEDS: ASPIRIN 81 MG CHEWABLE TABLET PO (09:26)
[2020-08-16] MEDS: carvediloL 25 MG TABLET PO ×2 (09:26→21:05)
[2020-08-16] MEDS: FERROUS SULFATE 324 MG TABLET PO (09:26)
[2020-08-16] MEDS: amLODIPine BESYLATE 5 MG TABLET PO (09:26)
[2020-08-16] MEDS: FUROSEMIDE 40 MG TABLET PO (09:26)
[2020-08-16] MEDS: ENOXAPARIN 40 MG/0.4 ML SYRINGE SUB-Q ×2 (09:27→21:05)
[2020-08-16] MEDS: EUCERIN CREAM 454 GM JAR 1 APPLIC TOPICAL (09:27)
[2020-08-16] MEDS: DEXAMETHASONE SOD PHOS INJ 4 MG/ML VIAL 6 MG IV PUSH (09:27)
[2020-08-16] MEDS: REMDESIVIR 100 MG/NS 250 ML 100 MG/250 ML BAG 250 MG IVPB (09:28)
[2020-08-16] MEDS: CALCIUM CARBONATE (TUMS) 500 MG (200 MG ELEMENTAL) PO ×2 (09:37→16:58)
[2020-08-16] MEDS: INSULIN ASPART (*BKC) 100 UNITS/ML 7 UNITS SUB-Q ×3 (09:38→17:04)
--- NOTE | 2020-08-16 12:52 | PM.IMPN ---
Progress Note: A&P Assessment and Plan (1) Pneumonia due to COVID-19 virus: Code(s): U07.1 - COVID-19; J12.82 - Pneumonia due to coronavirus disease 2019 Status: Acute Assessment and Plan: Pt symptoms were concerning for COVID and PCR has confirmed this -CT also showing bilateral PNA, c/w COVID - Remdesivir, dexamethasone and b.i.d. Lovenox will be continued - continue oxygen as needed for sats less than 90. I have asked nursing staff to wean o2 as needed -Plasma given 08/15/20 - monitor respiratory status closely - patient was vaccinated with the Pfizer vaccine and appears to be a breakthrough case -Will likely need a home o2 eval closer to d/c (2) Acute respiratory failure with hypoxia: Code(s): J96.01 - Acute respiratory failure with hypoxia Status: Acute Assessment and Plan: As above (3) CHF (congestive heart failure), NYHA class I: Code(s): I50.9 - Heart failure, unspecified Status: Chronic Assessment and Plan: Evidence of volume overload at presentation. Echo reviewed with normal EF 50-55% and grade 1 diastolic dysfunction. - continue p.o. Lasix 40 mg daily - continue heart healthy diet as well as Coreg (4) Pneumonia: Code(s): J18.9 - Pneumonia, unspecified organism Status: Acute Assessment and Plan: Evident on CXR - see above -Urinary legionella and pneumococcal antigens negative (5) COPD (chronic obstructive pulmonary disease): Code(s): J44.9 - Chronic obstructive pulmonary disease, unspecified Status: Acute Assessment and Plan: continue steroids, Symbicort and antibiotics (6) Obstructive sleep apnea: Code(s): G47.33 - Obstructive sleep apnea (adult) (pediatric) Status: Chronic Assessment and Plan: Continue CPAP at night (7) CAD (coronary artery disease): Code(s): I25.10 - Atherosclerotic heart disease of [place] coronary artery without angina pectoris Status: Chronic Assessment and Plan: The patient reports history of [place] in the past however he has not had any stents placed. - chest pain a few days ago with negative troponins and a BNP which has actually improved. No further CP. d/c tele (8) Hypertension: Code(s): I10 - Essential (primary) hypertension Status: Chronic Assessment and Plan: Blood pressures reviewed and have been well controlled. Last bp a little on the lower side than his normal at 94/55 but pt is not having any lightheadedness, dizziness, and actually feels better than he has in days -Continue carvedilol and amlodipine but if he trends low, may consider adjusting these (9) Anemia: Code(s): D64.9 - Anemia, unspecified Status: Chronic Assessment and Plan: Mild. H&H remaining stable. Vitals are stable and there is no evidence of blood loss. -Monitor H&H (10) Diabetes: Code(s): E11.9 - Type 2 diabetes mellitus without complications Status: Chronic Assessment and Plan: Last glucose 177. -A1c is 7.1. Blood sugars have been slightly elevated, likely secondary to IV steroids. -Continue Accu-Cheks, hypoglycemic protocol -Continue lantus - continue sliding scale insulin -Metformin has been held. Continue home glipizide. Subjective Date/time seen: 08/16/20 12:52 Interval history: Pt is a 70-year-old male here for CHF and PNA. Patient was seen today and is doing well and feels better today than he has in awhile. He thinks the plasma helped him a lot last night. He is still coughing but is able to take deeper breaths. His lower extremity swelling has improved. He is eating and drinking well and does not have any issues with smell or taste. No chest pain today. He had a BM yesterday. Exam Narrative: Exam Narrative: General: Overweight patient resting comfortably in the chair in no acute distress HEENT: normocephalic 4L of oxygen applied via alhaji
[2020-08-16 12:55] LABS: Glucose Point of Care 177 mg/dl (65-105)
[2020-08-16] MEDS: INSULIN ASPART (*BKC) 100 UNITS/ML SUB-Q (17:04)
[2020-08-16 17:06] LABS: Glucose Point of Care 363 mg/dl (65-105)
[2020-08-16] MEDS: ATORVASTATIN 40 MG TABLET 80 MG PO (21:05)
[2020-08-16] MEDS: INSULIN GLARGINE (*BKC) 100 UNITS/ML 30 UNITS SUB-Q (21:05)
[2020-08-16 21:18] LABS: Glucose Point of Care 197 mg/dl (65-105)
[2020-08-17] VITALS (19 sets, daily range): BP systolic 101–128; BP diastolic 61–76; PULSE 52–75; RESP 16–20; TEMP 36.1–36.6; O2SAT 91–93
[2020-08-17] MEDS: ALBUTEROL SULFATE NEB 2.5 MG/0.5 ML INH 5 MG INHALATION ×4 (03:17→20:01)
[2020-08-17] MEDS: IPRATROPIUM BR 0.02% INH SOLN 0.5 MG/2.5 ML VIAL INHALATION ×4 (03:17→20:02)
[2020-08-17] MEDS: guaiFENesin 12 HR 600 MG TABCR PO ×2 (05:42→17:27)
[2020-08-17 06:26] LABS: Hematocrit 40.1 % (42.0-52.0); Hemoglobin 13.1 g/dL (14.0-18.0); Mean Corpuscular HGB Conc 32.7 g/dl (32-36); Mean Corpuscular Hemoglobin 28.6 pg (26-34); Mean Corpuscular Volume 87.6 fl (80-100); Mean Platelet Volume 10.1 fl (7.4-10.4); Platelet Count Result 345 k/mm3 (150-375); Red Blood Count 4.58 M/mm3 (4.6-6.20); Red Cell Distribution Width 14.2 % (11.5-14.5); White Blood Count 10.7 K/mm3 (4.5-10.0)
[2020-08-17 06:47] LABS: Alanine Aminotransferase 24 U/L (4-50); Albumin Level 3.2 g/dL (3.5-5.1); Alkaline Phosphatase 76 U/L (38-126); Anion Gap 5 mmol/L (8-16); Aspartate Amino Transferase 21 U/L (17-59); Bilirubin,Total 0.5 mg/dL (0.2-1.3); Blood Urea Nitrogen 31 mg/dL (9-20); CRP 2.3 mg/dL (<1.0); Calcium 8.5 mg/dL (8.4-10.2); Carbon Dioxide 31 mmol/L (22-30); Chloride 96 mmol/L (98-107); Estimated CRCL calculation 80 ml/min; Estimated Glomerular Filt Rate 60; Glucose 179 mg/dL (75-110); Potassium 4.5 mmol/L (3.4-5.0); Sodium 132 mmol/L (137-145)
[2020-08-17 08:26] LABS: Glucose Point of Care 178 mg/dl (65-105)
[2020-08-17] MEDS: INSULIN ASPART (*BKC) 100 UNITS/ML 7 UNITS SUB-Q ×3 (08:48→17:24)
[2020-08-17] MEDS: ENOXAPARIN 40 MG/0.4 ML SYRINGE SUB-Q ×2 (08:49→21:48)
[2020-08-17] MEDS: GABAPENTIN 100 MG CAPSULE PO ×3 (08:49→17:27)
[2020-08-17] MEDS: CHOLECALCIFEROL 1,000 UNITS TABLET 2000 UNITS PO (08:49)
[2020-08-17] MEDS: amLODIPine BESYLATE 5 MG TABLET PO (08:49)
[2020-08-17] MEDS: DEXAMETHASONE SOD PHOS INJ 4 MG/ML VIAL 6 MG IV PUSH (08:49)
[2020-08-17] MEDS: FERROUS SULFATE 324 MG TABLET PO (08:50)
[2020-08-17] MEDS: ISOSORBIDE MONONITRATE 60 MG TAB.ER.24H 120 MG PO (08:50)
[2020-08-17] MEDS: FUROSEMIDE 40 MG TABLET PO (08:50)
[2020-08-17] MEDS: glipiZIDE 5 MG TABLET PO ×2 (08:50→17:25)
[2020-08-17] MEDS: MAGNESIUM OXIDE 400 MG TABLET PO ×2 (08:50→17:27)
[2020-08-17] MEDS: ASPIRIN 81 MG CHEWABLE TABLET PO (08:51)
[2020-08-17] MEDS: OMEGA 3 POLYUNSAT FATTY ACIDS 1 GM CAP PO ×2 (08:51→17:26)
[2020-08-17] MEDS: carvediloL 25 MG TABLET PO ×2 (08:51→21:47)
[2020-08-17] MEDS: EUCERIN CREAM 454 GM JAR 1 APPLIC TOPICAL (08:52)
[2020-08-17 09:17] LABS: Prothrombin Time 13.5 Seconds (11.1-14.7)
[2020-08-17] MEDS: REMDESIVIR 100 MG/NS 250 ML 100 MG/250 ML BAG 250 MG IVPB (11:47)
[2020-08-17 12:54] LABS: Glucose Point of Care 181 mg/dl (65-105)
--- NOTE | 2020-08-17 13:18 | PM.IMPN ---
Progress Note: A&P Assessment and Plan (1) Pneumonia due to COVID-19 virus: Code(s): U07.1 - COVID-19; J12.82 - Pneumonia due to coronavirus disease 2019 Status: Acute Assessment and Plan: Pt symptoms were concerning for COVID and PCR has confirmed this -CT also showing bilateral PNA, c/w COVID - Remdesivir, dexamethasone and b.i.d. Lovenox will be continued - continue oxygen as needed for sats less than 90. I have asked nursing staff to wean o2 as needed -Plasma given 08/15/20 - monitor respiratory status closely - patient was vaccinated with the Pfizer vaccine and appears to be a breakthrough case; ben day artist informed -Will likely need a home o2 eval closer to d/c; hopefully in the next 2 days with completion of IV Remdesivir (2) Acute respiratory failure with hypoxia: Code(s): J96.01 - Acute respiratory failure with hypoxia Status: Acute Assessment and Plan: As above. -Maintaining adequate O2 sats on 3 L today. (3) CHF (congestive heart failure), NYHA class I: Code(s): I50.9 - Heart failure, unspecified Status: Chronic Assessment and Plan: Evidence of volume overload at presentation. Echo reviewed with normal EF 50-55% and grade 1 diastolic dysfunction. - continue p.o. Lasix 40 mg daily - continue heart healthy diet as well as Coreg (4) Pneumonia: Code(s): J18.9 - Pneumonia, unspecified organism Status: Acute Assessment and Plan: Evident on CXR - see above -Urinary legionella and pneumococcal antigens negative -IV Ceftriaxone and azithromycin discontinued given viral etiology (5) COPD (chronic obstructive pulmonary disease): Code(s): J44.9 - Chronic obstructive pulmonary disease, unspecified Status: Acute Assessment and Plan: - continue Symbicort and albuterol - IV steroids discontinued (6) Obstructive sleep apnea: Code(s): G47.33 - Obstructive sleep apnea (adult) (pediatric) Status: Chronic Assessment and Plan: Continue CPAP at night (7) CAD (coronary artery disease): Code(s): I25.10 - Atherosclerotic heart disease of [place] coronary artery without angina pectoris Status: Chronic Assessment and Plan: The patient reports history of [place] in the past however he has not had any stents placed. - episode of chest pain on 08/13 with negative troponins and a BNP which has actually improved. No further CP. (8) Hypertension: Code(s): I10 - Essential (primary) hypertension Status: Chronic Assessment and Plan: Blood pressures reviewed and have been well controlled. Last BP 111/61. -Continue carvedilol and amlodipine but if he trends low, may consider adjusting these (9) Anemia: Code(s): D64.9 - Anemia, unspecified Status: Chronic Assessment and Plan: Mild. H&H remaining stable. Vitals are stable and there is no evidence of blood loss. -Monitor H&H (10) Diabetes: Code(s): E11.9 - Type 2 diabetes mellitus without complications Status: Chronic Assessment and Plan: Last glucose 179. -A1c is 7.1. Blood sugars had been slightly elevated, likely secondary to IV steroids. Seem to be improving. -Continue Accu-Cheks, sliding scale insulin, and hypoglycemic protocol -Continue lantus -Metformin has been held. Continue home glipizide. Subjective Date/time seen: 08/17/20 13:18 Interval history: date of service: 08/17/2020 Tony Ramon is a 70-year-old male with history of CAD, CHF, diabetes, ASHANTI, hypertension and PUD who is seen in follow-up for COVID-19 pneumonia. He is feeling better today. His cough is loosening. He feels he is able to take deep breaths. He has been getting up and ambulating to the restroom and denies FERMIN. No chest pain or palpitations. No dizziness or lightheadedness. Appetite is good. Eating and drinking well. Denies anosmia or dysguesia. He is having regular bowel movements
[2020-08-17] MEDS: CALCIUM CARBONATE (TUMS) 500 MG (200 MG ELEMENTAL) PO ×2 (14:45→17:24)
[2020-08-17] MEDS: INSULIN ASPART (*BKC) 100 UNITS/ML SUB-Q (17:25)
[2020-08-17 17:28] LABS: Glucose Point of Care 285 mg/dl (65-105)
[2020-08-17] MEDS: INSULIN GLARGINE (*BKC) 100 UNITS/ML 30 UNITS SUB-Q (21:48)
[2020-08-17 21:55] LABS: Glucose Point of Care 215 mg/dl (65-105)
[2020-08-17] MEDS: ATORVASTATIN 40 MG TABLET 80 MG PO (23:13)
[2020-08-18] VITALS (20 sets, daily range): BP systolic 101–145; BP diastolic 56–81; PULSE 51–80; RESP 16–20; TEMP 35.8–37.2; O2SAT 90–96
[2020-08-18] MEDS: IPRATROPIUM BR 0.02% INH SOLN 0.5 MG/2.5 ML VIAL INHALATION ×4 (02:06→19:48)
[2020-08-18] MEDS: ALBUTEROL SULFATE NEB 2.5 MG/0.5 ML INH 5 MG INHALATION ×4 (02:06→19:47)
[2020-08-18] MEDS: guaiFENesin 12 HR 600 MG TABCR PO ×2 (05:47→17:01)
[2020-08-18 06:21] LABS: Hematocrit 42.6 % (42.0-52.0); Hemoglobin 13.6 g/dL (14.0-18.0); Mean Corpuscular HGB Conc 31.9 g/dl (32-36); Mean Corpuscular Hemoglobin 28.4 pg (26-34); Mean Corpuscular Volume 88.9 fl (80-100); Mean Platelet Volume 10.1 fl (7.4-10.4); Platelet Count Result 355 k/mm3 (150-375); Red Blood Count 4.79 M/mm3 (4.6-6.20); Red Cell Distribution Width 14.4 % (11.5-14.5); White Blood Count 11.7 K/mm3 (4.5-10.0)
[2020-08-18 06:29] LABS: INR 0.9; Prothrombin Time 13.1 Seconds (11.1-14.7)
[2020-08-18 06:41] LABS: Alanine Aminotransferase 31 U/L (4-50); Albumin Level 3.4 g/dL (3.5-5.1); Alkaline Phosphatase 73 U/L (38-126); Anion Gap 7 mmol/L (8-16); Aspartate Amino Transferase 27 U/L (17-59); Bilirubin,Total 0.4 mg/dL (0.2-1.3); Blood Urea Nitrogen 30 mg/dL (9-20); CRP 1.4 mg/dL (<1.0); Calcium 8.8 mg/dL (8.4-10.2); Carbon Dioxide 31 mmol/L (22-30); Chloride 96 mmol/L (98-107); Estimated CRCL calculation 80 ml/min; Estimated Glomerular Filt Rate 60; Glucose 138 mg/dL (75-110); Potassium 4.5 mmol/L (3.4-5.0); Sodium 134 mmol/L (137-145)
[2020-08-18 08:18] LABS: Glucose Point of Care 144 mg/dl (65-105)
[2020-08-18] MEDS: INSULIN ASPART (*BKC) 100 UNITS/ML 7 UNITS SUB-Q ×3 (08:19→16:57)
[2020-08-18] MEDS: DEXAMETHASONE SOD PHOS INJ 4 MG/ML VIAL 6 MG IV PUSH (08:22)
[2020-08-18] MEDS: glipiZIDE 5 MG TABLET PO ×2 (08:23→15:30)
[2020-08-18] MEDS: FUROSEMIDE 40 MG TABLET PO (08:23)
[2020-08-18] MEDS: MAGNESIUM OXIDE 400 MG TABLET PO ×2 (08:23→17:01)
[2020-08-18] MEDS: ENOXAPARIN 40 MG/0.4 ML SYRINGE SUB-Q ×2 (08:23→21:18)
[2020-08-18] MEDS: ISOSORBIDE MONONITRATE 60 MG TAB.ER.24H 120 MG PO (08:24)
[2020-08-18] MEDS: EUCERIN CREAM 454 GM JAR 1 APPLIC TOPICAL (08:24)
[2020-08-18] MEDS: CHOLECALCIFEROL 1,000 UNITS TABLET 2000 UNITS PO (08:24)
[2020-08-18] MEDS: OMEGA 3 POLYUNSAT FATTY ACIDS 1 GM CAP PO ×2 (08:24→17:01)
[2020-08-18] MEDS: FERROUS SULFATE 324 MG TABLET PO (08:24)
[2020-08-18] MEDS: GABAPENTIN 100 MG CAPSULE PO ×3 (08:24→17:01)
[2020-08-18] MEDS: amLODIPine BESYLATE 5 MG TABLET PO (08:25)
[2020-08-18] MEDS: ASPIRIN 81 MG CHEWABLE TABLET PO (08:25)
[2020-08-18] MEDS: carvediloL 25 MG TABLET PO ×2 (08:25→21:18)
[2020-08-18] MEDS: CALCIUM CARBONATE (TUMS) 500 MG (200 MG ELEMENTAL) PO ×2 (08:26→17:01)
[2020-08-18] MEDS: REMDESIVIR 100 MG/NS 250 ML 100 MG/250 ML BAG 250 MG IVPB (09:37)
[2020-08-18 11:31] LABS: Glucose Point of Care 205 mg/dl (65-105)
[2020-08-18] MEDS: INSULIN ASPART (*BKC) 100 UNITS/ML SUB-Q ×2 (11:47→16:57)
--- NOTE | 2020-08-18 13:19 | PM.IMPN ---
Progress Note: A&P Assessment and Plan (1) Pneumonia due to COVID-19 virus: Code(s): U07.1 - COVID-19; J12.82 - Pneumonia due to coronavirus disease 2019 Status: Acute Assessment and Plan: Pt symptoms were concerning for COVID and PCR has confirmed this -CT also showing bilateral PNA, c/w COVID - Remdesivir, dexamethasone and b.i.d. Lovenox will be continued - continue oxygen as needed for sats less than 90. I have asked nursing staff to wean o2 as needed - Plasma given 08/15/20 - monitor respiratory status closely - patient was vaccinated with the Pfizer vaccine and appears to be a breakthrough case; packaging line attendant informed - Home O2 eval ordered - Hopeful discharge tomorrow following completion of IV Remdesivir (2) Acute respiratory failure with hypoxia: Code(s): J96.01 - Acute respiratory failure with hypoxia Status: Acute Assessment and Plan: As above. - Maintaining adequate O2 sats on 2 L today. (3) CHF (congestive heart failure), NYHA class I: Code(s): I50.9 - Heart failure, unspecified Status: Chronic Assessment and Plan: Evidence of volume overload at presentation. Echo reviewed with normal EF 50-55% and grade 1 diastolic dysfunction. - continue p.o. Lasix 40 mg daily - continue heart healthy diet as well as Coreg (4) Pneumonia: Code(s): J18.9 - Pneumonia, unspecified organism Status: Acute Assessment and Plan: Evident on CXR - see above - Urinary legionella and pneumococcal antigens negative - IV Ceftriaxone and azithromycin discontinued given viral etiology (5) COPD (chronic obstructive pulmonary disease): Code(s): J44.9 - Chronic obstructive pulmonary disease, unspecified Status: Acute Assessment and Plan: - continue Symbicort and albuterol (6) Obstructive sleep apnea: Code(s): G47.33 - Obstructive sleep apnea (adult) (pediatric) Status: Chronic Assessment and Plan: Continue CPAP at night (7) CAD (coronary artery disease): Code(s): I25.10 - Atherosclerotic heart disease of [place] coronary artery without angina pectoris Status: Chronic Assessment and Plan: The patient reports history of [place] in the past however he has not had any stents placed. - episode of chest pain on 08/13 with negative troponins and a BNP which has actually improved. No further CP. (8) Hypertension: Code(s): I10 - Essential (primary) hypertension Status: Chronic Assessment and Plan: Blood pressures reviewed and have been well controlled. Last BP 101/60. -Continue carvedilol and amlodipine -Monitor BP trends (9) Anemia: Code(s): D64.9 - Anemia, unspecified Status: Chronic Assessment and Plan: Mild. H&H remaining stable. Vitals are stable and there is no evidence of blood loss. -Monitor H&H (10) Diabetes: Code(s): E11.9 - Type 2 diabetes mellitus without complications Status: Chronic Assessment and Plan: Fasting glucose this am 138. -A1c is 7.1. Blood sugars had been slightly elevated, likely secondary to IV steroids. Seem to be improving. -Continue Accu-Cheks, sliding scale insulin, and hypoglycemic protocol -Continue lantus -Metformin has been held. Continue home glipizide. Subjective Date/time seen: 08/18/20 13:19 Interval history: date of service: 08/18/2020 Tony Ramon is a 70-year-old male with history of CAD, CHF, diabetes, ASHANTI, hypertension and PUD who is seen in follow-up for COVID-19 pneumonia. He is feeling well today. His cough is looser. He is able to take deep breaths. He took a shower last night and this made him feel much better. He denies conversational dyspnea, orthopnea, chest pain, PND. No dizziness or lightheadedness. No N/V, fever, chills. Overall feeling well and would like to go home tomorrow after completing 5 days of IV Remdesivir. Review of Systems Review of
[2020-08-18 16:12] LABS: Glucose Point of Care 297 mg/dl (65-105)
[2020-08-18] MEDS: ATORVASTATIN 40 MG TABLET 80 MG PO (21:17)
[2020-08-18] MEDS: INSULIN GLARGINE (*BKC) 100 UNITS/ML 30 UNITS SUB-Q (21:26)
[2020-08-18 21:34] LABS: Glucose Point of Care 229 mg/dl (65-105)
[2020-08-19] VITALS (14 sets, daily range): BP systolic 149; BP diastolic 83; PULSE 60–89; RESP 18–20; TEMP 36.6; O2SAT 85–94
[2020-08-19] MEDS: ALBUTEROL SULFATE NEB 2.5 MG/0.5 ML INH 5 MG INHALATION ×2 (01:17→08:43)
[2020-08-19] MEDS: IPRATROPIUM BR 0.02% INH SOLN 0.5 MG/2.5 ML VIAL INHALATION ×2 (01:17→08:43)
[2020-08-19] MEDS: guaiFENesin 12 HR 600 MG TABCR PO (05:36)
[2020-08-19 06:19] LABS: INR 0.9; Prothrombin Time 13.2 Seconds (11.1-14.7)
[2020-08-19 06:22] LABS: Alanine Aminotransferase 38 U/L (4-50); Albumin Level 3.1 g/dL (3.5-5.1); Alkaline Phosphatase 70 U/L (38-126); Anion Gap 7 mmol/L (8-16); Aspartate Amino Transferase 31 U/L (17-59); Bilirubin,Total 0.5 mg/dL (0.2-1.3); Blood Urea Nitrogen 31 mg/dL (9-20); Calcium 8.7 mg/dL (8.4-10.2); Carbon Dioxide 31 mmol/L (22-30); Chloride 97 mmol/L (98-107); Estimated CRCL calculation 79 ml/min; Estimated Glomerular Filt Rate 60; Glucose 135 mg/dL (75-110); Hematocrit 38.8 % (42.0-52.0); Hemoglobin 12.9 g/dL (14.0-18.0); Mean Corpuscular HGB Conc 33.2 g/dl (32-36); Mean Corpuscular Hemoglobin 28.9 pg (26-34); Mean Platelet Volume 10.2 fl (7.4-10.4); Platelet Count Result 351 k/mm3 (150-375); Potassium 4.3 mmol/L (3.4-5.0); Red Blood Count 4.46 M/mm3 (4.6-6.20); Red Cell Distribution Width 14.4 % (11.5-14.5); Sodium 135 mmol/L (137-145)
[2020-08-19 07:57] LABS: Glucose Point of Care 109 mg/dl (65-105)
--- NOTE | 2020-08-19 10:13 | HOMEO2EVAL ---
Evaluation was performed at [facility] Home Oxygen Evaluation RC: Home Oxygen (O2) Evaluation Start: 08/18/20 13:20 Freq: ONCE Status: Active Protocol: RPE Activity Type Activity Date Activity User E-Sign Co-Sign Detail Recorded Client Recorded Date Recorded By Document 08/19/20 09:20 [email or web address] [email or web address] 08/19/20 10:13 DJO Document 08/19/20 09:25 [email or web address] [email or web address] 08/19/20 10:13 DJO Document 08/19/20 09:30 [email or web address] [email or web address] 08/19/20 10:13 DJO Document 08/19/20 09:35 [email or web address] [email or web address] 08/19/20 10:13 DJO Document 08/19/20 09:40 [email or web address] [email or web address] 08/19/20 10:13 DJO Document 08/19/20 09:45 [email or web address] [email or web address] 08/19/20 10:13 DJO Document 08/19/20 10:00 [email or web address] [email or web address] 08/19/20 10:13 DJO 08/19/20 08/19/20 08/19/20 09:20 09:25 09:30 Home O2 Evaluation Test Phase Resting Exercise Exercise Oxygen Delivery Room Air Room Air Nasal Cannula Oxygen Flow Rate (L/min) 1 Pulse Oximetry (90-100 %) 91 85 L 86 L Pulse Rate (60-100 beats/min) 66 79 85 Activity Tolerance Ambulation Distance (feet) Treatment Charges O2 Evaluation - Inpatient 08/19/20 08/19/20 08/19/20 09:35 09:40 09:45 Home O2 Evaluation Test Phase Exercise Exercise Exercise Oxygen Delivery Nasal Cannula Nasal Cannula Nasal Cannula Oxygen Flow Rate (L/min) 2 3 4 Pulse Oximetry (90-100 %) 87 L 88 L 90 Pulse Rate (60-100 beats/min) 86 89 88 Activity Tolerance Good Ambulation Distance (feet) 500 Treatment Charges 08/19/20 10:00 Home O2 Evaluation Test Phase Resting Oxygen Delivery Room Air Oxygen Flow Rate (L/min) Pulse Oximetry (90-100 %) 90 Pulse Rate (60-100 beats/min) 64 Activity Tolerance Ambulation Distance (feet) Treatment Charges
[2020-08-19] MEDS: ISOSORBIDE MONONITRATE 60 MG TAB.ER.24H 120 MG PO (10:19)
[2020-08-19] MEDS: CHOLECALCIFEROL 1,000 UNITS TABLET 2000 UNITS PO (10:19)
[2020-08-19] MEDS: FUROSEMIDE 40 MG TABLET PO (10:20)
[2020-08-19] MEDS: carvediloL 25 MG TABLET PO (10:20)
[2020-08-19] MEDS: OMEGA 3 POLYUNSAT FATTY ACIDS 1 GM CAP PO (10:20)
[2020-08-19] MEDS: glipiZIDE 5 MG TABLET PO (10:20)
[2020-08-19] MEDS: GABAPENTIN 100 MG CAPSULE PO ×2 (10:20→13:14)
[2020-08-19] MEDS: amLODIPine BESYLATE 5 MG TABLET PO (10:20)
[2020-08-19] MEDS: DEXAMETHASONE SOD PHOS INJ 4 MG/ML VIAL 6 MG IV PUSH (10:22)
[2020-08-19] MEDS: ASPIRIN 81 MG CHEWABLE TABLET PO (10:22)
[2020-08-19] MEDS: MAGNESIUM OXIDE 400 MG TABLET PO (10:22)
[2020-08-19] MEDS: REMDESIVIR 100 MG/NS 250 ML 100 MG/250 ML BAG 250 MG IVPB (10:23)
[2020-08-19] MEDS: ENOXAPARIN 40 MG/0.4 ML SYRINGE SUB-Q (10:24)
--- NOTE | 2020-08-19 11:05 | PCNWS ---
Weekly nutritional screen. Patient is tolerating current diet with adequate intake. No nutritional needs at this time.
--- NOTE | 2020-08-19 11:40 | PM.DS ---
DS: Admitting Diagnosis Admitting Diagnosis Admitting Diagnosis: Acute on chronic CHF DS: Discharge Diagnosis Discharge Diagnosis (1) Pneumonia due to COVID-19 virus: Code(s): U07.1 - COVID-19; J12.82 - Pneumonia due to coronavirus disease 2018 Status: Acute Assessment and Plan: Date of Admission 08/06/20 Date of Discharge 08/19/20 Mr. Ramon is a pleasant 70yo M with CHF, COPD, CAD, ASHANTI, hypertension, insulin-dependent DM who presented to the ED for evaluation of shortness of breath and bilateral leg swelling and started noticing worsening in his symptoms day prior to arrival, unable to lie flat. He was hypoxic and requiring supplemental oxygen and does not use oxygen at home. He was initially treated for acute on chronic CHF and diuresed with IV lasix. Imaging showed evidence of pneumonia and he was initially treated with empiric antibiotic therapy with azithromycin and Rocephin. He was treated with bronchodilator therapy as well. CTA chest was obtained a few days into admission due to persistent hypoxia despite the therapy outlined above, which demonstrated findings concerning for COVID pneumonia. He was found to be positive for COVID by PCR 08/13/20. He was fully vaccinated with both doses of the [employer] COVID vaccine in the spring, binman informed. Antibiotics were discontinued and he was started on steroids and antiviral therapy with dexamethasone and Remdesivir, respectively. Clinically he improved but did still continue to require oxygen. Home oxygen evaluation performed day of discharge shows he needs 4L with activity but none at rest. He was hemodynamically stable for discharge on 08/19/2020 with instructions to follow-up with PCP. (2) Acute respiratory failure with hypoxia: Code(s): J96.01 - Acute respiratory failure with hypoxia Status: Acute Assessment and Plan: As above. Home O2 eval day of discharge - no O2 needed at rest; 4L/min with activity. (3) CHF (congestive heart failure), NYHA class I: Code(s): I50.9 - Heart failure, unspecified Status: Chronic Assessment and Plan: Evidence of volume overload at presentation. Improved with diuresis with lasix. Euvolemic day of discharge. Echo reviewed with normal EF 50-55% and grade 1 diastolic dysfunction. Continue heart healthy diet as well as Coreg. Lasix increased to 40mg daily at discharge. (4) Pneumonia: Code(s): J18.9 - Pneumonia, unspecified organism Status: Acute Assessment and Plan: As above. (5) COPD (chronic obstructive pulmonary disease): Code(s): J44.9 - Chronic obstructive pulmonary disease, unspecified Status: Chronic Assessment and Plan: Continue Symbicort and albuterol (6) Obstructive sleep apnea: Code(s): G47.33 - Obstructive sleep apnea (adult) (pediatric) Status: Chronic Assessment and Plan: Continue CPAP at night (7) CAD (coronary artery disease): Code(s): I25.10 - Atherosclerotic heart disease of [place] coronary artery without angina pectoris Status: Chronic Assessment and Plan: The patient reports history of [place] in the past however he has not had any stents placed. Episode of chest pain on 08/13 with negative troponins and a BNP which has actually improved. He had no further CP. (8) Hypertension: Code(s): I10 - Essential (primary) hypertension Status: Chronic Assessment and Plan: Blood pressures stable maintained on his home carvedilol and amlodipine. (9) Anemia: Code(s): D64.9 - Anemia, unspecified Status: Chronic Assessment and Plan:
[2020-08-19 12:48] LABS: Glucose Point of Care 226 mg/dl (65-105)
[2020-08-19] MEDS: INSULIN ASPART (*BKC) 100 UNITS/ML SUB-Q (13:15)
[2020-08-19] MEDS: INSULIN ASPART (*BKC) 100 UNITS/ML 7 UNITS SUB-Q (13:17)
[2020-08-19] MEDS: EUCERIN CREAM 454 GM JAR 1 APPLIC TOPICAL (13:21)
== END 2020-08-19 14:05 | disposition home or self-care (01) | DRG 177 ==
LOC: ANHED 13:32 → ANH2MED 15:16 → ANH3MEDSUR 08-16 12:52 → ANH2MED 08-20 11:08 → ANH3MEDSUR 08-20 11:08
PROVIDERS: Nurse Practitioner; Physician Assistant; Admitting Provider Internal Medicine; Emergency Provider Family Medicine; Visit Provider Physician Assistant
DX: U07.1 COVID-19 (principal); J12.82 Pneumonia due to coronavirus disease 2019; J96.01 Acute respiratory failure with hypoxia; I50.33 Acute on chronic diastolic (congestive) heart failure; J44.0 Chronic obstructive pulmonary disease with (acute) lower respiratory infection; I25.10 Atherosclerotic heart disease of native coronary artery without angina pectoris; G47.33 Obstructive sleep apnea (adult) (pediatric); D64.9 Anemia, unspecified; E11.42 Type 2 diabetes mellitus with diabetic polyneuropathy; I11.0 Hypertensive heart disease with heart failure; E78.5 Hyperlipidemia, unspecified; G40.909 Epilepsy, unspecified, not intractable, without status epilepticus; E66.9 Obesity, unspecified; Z68.37 Body mass index [BMI] 37.0-37.9, adult; I25.2 Old myocardial infarction; Z87.11 Personal history of peptic ulcer disease
CPT/HCPCS: 36415; 36430; 71046; 71275; 80048; 80053; 80076; 82728; 82948; 83036; 83615; 83735; 83880; 84460; 84484; 85014; 85018; 85025; 85027; 85055; 85380; 85610; 85730; 86140; 86900; 86901; 87449; 87804; 87899; 93005; 93306; 93970; 94003; 94618; 94640; 94660; 96372; 96374; 96375; 96376; 99285; A9270; C9803; G0378; J0456; J0696; J1100; J1650; J1815; J1940; J2920; J2930; J7050; P9059; Q9967; U0003; U0005

== ENCOUNTER 2024-06-24 09:06 | Emergency (ER) | payer OTHER, MEDICAID, SELFPAY ==
[2024-06-24 09:19] VITALS: BP 123/68; PULSE 66; RESP 20; TEMP 36.2; O2SAT 90
--- NOTE | 2024-06-24 09:28 | ED_ITS ---
HPI - Male Genitourinary General Chief complaint: Urogenital-Male Stated complaint: Bladder Infection Symptoms Time Seen by Provider: 06/24/24 09:29 Source: patient, RN notes reviewed and old records reviewed Mode of arrival: ambulatory Limitations: no limitations History of Present Illness HPI Narrative: 74-year-old male who presents to [facility] with 2 day history of mild burning initially 2 days ago with voiding frequently in small amounts. Patient reports no visible blood, reports no suprapubic tenderness or any flank pain. Patient reports no fevers no nausea and vomiting or any diarrhea. He states that he has been taking some lyir-pvv-[id number] cranberry pills and has increased his water intake. Patient is diabetic states he forgot to take his metformin this morning he does have 2+ glucose in his urine specimen, fingerstick glucose performed and results 184 MD Complaint: dysuria and other (frequency in small amounts) Onset (ago): day(s) (2-3) Severity: moderate Related Data Home Medications ?Medication ?Instructions ?Recorded ?Confirmed ?Last Taken ?Type albuterol sulfate 2.5 mg/3 mL 2.5 mg inhalation Q4H PRN 08/06/20 08/06/20 Unknown History (0.083 %) solution for nebulization Shortness Of Breath albuterol sulfate 90 mcg/actuation 4 inh inhalation QID PRN Shortness 08/06/20 08/06/20 Unknown History breath activated powder inhaler Of Breath amlodipine 5 mg tablet 5 mg PO DAILY 08/06/20 08/06/20 Unknown History aspirin 81 mg tablet 81 mg PO DAILY 08/06/20 08/06/20 Unknown History atorvastatin 80 mg tablet 80 mg PO HS 08/06/20 08/06/20 Unknown History budesonide-formoterol HFA 160 2 puff inhalation Q12H 08/06/20 08/06/20 Unknown History mcg-4.5 mcg/actuation aerosol inhaler calcium carbonate 200 mg PO BID 08/06/20 08/06/20 Unknown History carboxymethylcellulose sodium 0.5 1 drp EACH EYE QID PRN Dry Eye(S) 08/06/20 08/06/20 Unknown History % eye drops carvedilol 25 mg tablet 25 mg PO BID 08/06/20 08/06/20 Unknown History cholecalciferol (vitamin D3) 50 50 mcg PO DAILY 08/06/20 08/06/20 Unknown History mcg (2,000 unit) tablet ferrous sulfate 325 mg (65 mg 325 mg PO DAILY 08/06/20 08/06/20 Unknown History iron) tablet gabapentin 100 mg tablet 100 mg PO TID 08/06/20 08/06/20 Unknown History glipizide 5 mg tablet 5 mg PO BID 08/06/20 08/06/20 Unknown History hydrophilic 1 applic topical DAILY 08/06/20 08/06/20 Unknown History isosorbide mononitrate 120 mg 120 mg PO DAILY 08/06/20 08/06/20 Unknown History tablet,extended release 24 hr magnesium oxide 420 mg tablet 400 mg PO BID 08/06/20 08/06/20 Unknown History metformin 1,000 mg tablet 1,000 mg PO BID 08/06/20 08/06/20 Unknown History omega-3 fatty acids 500 mg capsule 1,000 mg PO BID 08/06/20 08/07/20 Unknown History tiotropium bromide 2.5 2 puff inhalation DAILY 08/06/20 08/06/20 Unknown History mcg/actuation mist for inhalation Allergies Allergy/AdvReac Type Severity Reaction Status Date / Time lisinopril Allergy Severe ANGIOEDEMA Verified 09/13/20 09:18 lovastatin Allergy Unknown Nausea and Verified 09/13/20 09:18 Vomiting spironolactone Allergy Unknown Nausea and Verified 09/13/20 09:18 Vomiting Review of Systems Review of Systems: CONSTITUTIONAL: Denies fever, chills, or sweats. CARDIOVASCULAR: Denies chest pain, palpitations, or edema. RESPIRATORY: Denies cough or dyspnea. GASTROINTESTINAL: Denies abdominal pain, nausea, vomiting, or diarrhea. GENITOURINARY: Reports initial dysuria, frequency, urgency, voiding in small amounts. Denies flank pain or visible hematuria. SKIN: Denies rash or itching. MUSCULOSKELETAL: Denies back pain or myalgia. Denies CVA tenderness NEUROLOGIC: Denies headache All systems reviewed & are unremarkable except as noted in HPI and below [facility] Past Medical History Medical History (Updated 06/24/24 @ 14:44 by Emily Ram NP) Kidney stone in past states passed on its own Peptic ulcer disease Hyperlipidemia Diabetes Anemia Hypertension Seizure disorder CAD (coronary artery disease) Per patient has had a major heart attack but did not require any cardiac stents CHF (congestive heart failure), NYHA class I Hypoventilation associated with obesity Obstructive sleep apnea Surgical History Surgical History H/O elbow surgery right elbow surgery Hx of cholecystectomy Hx of appendectomy History of tonsillectomy H/O right wrist surgery ORIF Family History Family History Mother Cervical cancer Father Diabetes mellitus Hypertension Social History Social History Smoking status: Former smoker Tobacco type: cigarettes Alcohol intake: never Substance use: never Gender identity (if verbalized by the patient): Male Spiritual care concerns: No Comments At time of signature, agree with nursing past medical, surgical, social and family history. There is no relevant family history pertinent to the presenting complaint Exam Narrative: GENERAL: Chronic ill -appearing, well-nourished, and in no acute distress, is on home oxygen HEAD: Normocephalic, atraumatic. NECK: Supple.no lymphadenopathy CHEST: Clear to auscultation. No respiratory distress.is on home oxygen therapy denies any present dyspnea, SAO2 90% HEART: Regular rate and rhythm. No murmur heard. Normal peripheral pulses. ABDOMEN: Soft, nontender, nondistended, normal active bowel sounds. No CVA tenderness, urinary frequency, voiding in small amount, denies any incidence of fever EXTREMITIES: Normal range of motion. No edema. SKIN: Warm, dry, no rash. NEURO: No focal deficits. Alert and oriented x3. Course Course Emergency Course: Patient is aware of diagnosis, understands and agrees to treatment plan.? Anticipatory guidance given.? Patient agrees to follow-up as directed and is aware of reasons to seek care at the emergency department. Portions of this record may have been created with voice recognition software Level of Care: Express Care Visit Vital Signs Vital signs: Vital Signs Temperature 36.2 C L 06/24/24 09:19 Pulse Rate 66 06/24/24 09:19 Respiratory Rate 20 06/24/24 09:19 Blood Pressure 123/68 06/24/24 09:19 Pulse Oximetry 90 06/24/24 09:19 Temperature 36.2 C L 06/24/24 09:19 Pulse Rate 66 06/24/24 09:19 Respiratory Rate 20 06/24/24 09:19 Blood Pressure 123/68 06/24/24 09:19 Pulse Oximetry 90 06/24/24 09:19 reviewed MDM - Male Genitourinary Differential Diagnosis Differential diagnosis: Likely urinary tract infection, urethritis, prostatitis and other (urinary frequency, urgency, voiding in small amounts) Medical Records Attestation: I reviewed the patient's medical records. Lab Data Attestation: I reviewed the patient's lab results. Lab results narrative: urine dip glucose 2+, bilirubin negative, ketone negative, specific gravity 1.015, blood 2+, pH 6.0 protein 2+ urobilinogen 0.2 nitrate negative, leukocyte 1+ urine yellow and cloudy fingerstick blood sugar 184 Labs: Lab Results 06/24/24 06/24/24 Range/Units 09:37 09:38 POC Capillary Glucose 184 H (65-105) mg/dl POC Urine Color Yellow POC Urine Clarity Cloudy POC Urine pH 6.0 POC Ur Specif [place] 1.015 POC Urine Protein 2+ (Negative) POC Ur Glucose (UA) 2+ (Negative) POC Urine Ketones Negative (Negative) POC Urine Blood 2+ (Negative) POC Urine Nitrite Negative (Negative) POC Urine Bilirubin Negative (Negative) POC Urine Urobilinogen 0.2 POC U Leukocyte Esteras 1+ (Negative) reviewed Critical Care Time Critical Care Time Critical Care Time: No Discharge Plan Discharge Clinical Impression: Urinary tract infection Qualifiers: Urinary tract infection type: site unspecified Hematuria presence: with hematuria Qualified Code(s): N39.0 - Urinary tract infection, site not specified Patient Disposition: Home Condition: Stable Instructions: Antibiotic Form, Urinary Tract Infection in Men (ED) Additional Instructions: Increase fluids especially cranberry juice and water Avoid caffeine and carbonated beverages Antibiotic as directed Tylenol/ibuprofen for pain or fever Follow-up with her primary care provider if further problems or concerns Recheck if you have fever over 101, nausea and vomiting. Patient instructed to go to the emergency room if he experiences any increased pain any increased blood in urine or elevated temperatures above 101F amoxicillin with clavulanate 875/125 mg 1 twice daily for 10 days take probiotics while taking this medication If your symptoms persist, change or worsen significantly before you can contact your personal physician then please, without delay, go to the emergency department for further evaluation. Follow-up with PCP in 7-10 days or sooner if needed Patient Language: Tajik Prescriptions: New amoxicillin-pot clavulanate 875-125 mg tablet 1 tablet PO Q12H Qty: 20 0RF Rx Instructions: take with food No Action atorvastatin 80 mg Tablet 80 mg PO HS carvedilol 25 mg Tablet 25 mg PO BID hydrophilic Ointment 1 applic TOPICAL DAILY amlodipine 5 mg Tablet 5 mg PO DAILY carboxymethylcellulose sodium 0.5 % Drops 1 drp EACH EYE QID PRN (Reason: Dry Eye(S)) ferrous sulfate 325 mg (65 mg iron) Tablet 325 mg PO DAILY calcium carbonate 200 mg calcium (500 mg) Tablet,Chewable 200 mg PO BID glipizide 5 mg Tablet 5 mg PO BID budesonide-formoterol 160-4.5 mcg/actuation Hfa Aerosol Inhaler 2 puff INHALATION Q12H albuterol sulfate 90 mcg/actuation Aerosol Powdr Breath Activated 4 inh INHALATION QID PRN (Reason: Shortness Of Breath) magnesium oxide 420 mg Tablet 400 mg PO BID isosorbide mononitrate 120 mg Tablet Extended Release 24 Hr 120 mg PO DAILY aspirin 81 mg Tablet 81 mg PO DAILY gabapentin 100 mg Tablet 100 mg PO TID omega-3 fatty acids 500 mg Capsule 1,000 mg PO BID Rx Instructions: brought Pt home medication bottle of omega 3 and strength is 1000mg cholecalciferol (vitamin D3) 50 mcg (2,000 unit) Tablet 50 mcg PO DAILY tiotropium bromide 2.5 mcg/actuation Mist 2 puff INHALATION DAILY albuterol sulfate 2.5 mg /3 mL (0.083 %) Solution For Nebulization 2.5 mg INHALATION Q4H PRN (Reason: Shortness Of Breath) metformin 1,000 mg Tablet 1,000 mg PO BID guaifenesin [Mucus Relief ER] 600 mg Tablet Extended Release 12hr 600 mg PO Q12H Qty: 20 0RF dexamethasone 6 mg tablet 6 mg PO DAILY Qty: 3 0RF furosemide 20 mg Tablet 40 mg PO DAILY Qty: 30 0RF Follow-up/Referrals: PHYSICIAN,SENIOR CARE MANAGER [Primary Care Provider] - Time of Disposition: 10:04 Quality [place] Coma Scale Eyes: Open Verbal: Oriented and Alert Motor: Follows Commands Jose Elias Coma Total Score: 15
[2024-06-24 09:39] LABS: EDUAAPPEAR Cloudy; EDUABILI Negative (Negative); EDUABLOOD 2+ (Negative); EDUACOLOR1 Yellow; EDUAGLUCOSE 2+ (Negative); EDUAKETONE Negative (Negative); EDUALEUKO 1+ (Negative); EDUANITRATE Negative (Negative); EDUAPROTEIN 2+ (Negative); EDUASPGRAVITY 1.015; EDUAUROBILI 0.2
[2024-06-24 09:40] LABS: Glucose Point of Care 184 mg/dl (65-105)
== END 2024-06-24 10:10 | disposition home or self-care (01) ==
PROVIDERS: Emergency Provider Registered Nurse
DX: N39.0 Urinary tract infection, site not specified (principal); E78.5 Hyperlipidemia, unspecified; I25.10 Atherosclerotic heart disease of native coronary artery without angina pectoris; I11.0 Hypertensive heart disease with heart failure; I50.9 Heart failure, unspecified; E11.9 Type 2 diabetes mellitus without complications; Z79.84 Long term (current) use of oral hypoglycemic drugs; D64.9 Anemia, unspecified; I25.2 Old myocardial infarction; E66.9 Obesity, unspecified; Z68.36 Body mass index [BMI] 36.0-36.9, adult; Z79.82 Long term (current) use of aspirin
CPT/HCPCS: 81003; 82948; 87086; 87186; 99213; G0463